=== PATIENT | male | born 1990 | race Caucasian/White ===

== ENCOUNTER 2022-07-14 12:19 | Inpatient (IN) | payer OTHER, SELFPAY ==
--- NOTE | 2022-07-14 | ECG_ITS ---
Test Reason : med clearance Blood Pressure : / mmHG Vent. Rate : 073 BPM Atrial Rate : 073 BPM P-R Int : 140 ms QRS Dur : 096 ms QT Int : 380 ms P-R-T Axes : 005 073 046 degrees QTc Int : 418 ms Normal sinus rhythm Incomplete right bundle branch block Borderline ECG No previous ECGs available Referred By: Mattie Jaquez Electronically Signed By:SAMEER SWEENEY
[2022-07-14 12:39] VITALS: BP 123/88; PULSE 107; RESP 18; TEMP 36.9; O2SAT 96; BMI 23.6
--- NOTE | 2022-07-14 13:12 | PC.NURSE ---
Smart sheet faxed [phone]
[2022-07-14 13:22] LABS: MANUAL DIFF FLAG NO
[2022-07-14 13:25] LABS: Basophils Absolute Auto 0.1 X10*3/uL (0.0-0.2); Basophils Percent Auto 0.5 % (0-2); Eosinophils Absolute Auto 0.1 X10*3/uL (0.0-0.4); Eosinophils Percent Auto 0.5 % (0-4); Hematocrit 42.8 % (42.0-52.0); Hemoglobin 15.4 g/dl (14.0-18.0); Imm Gran Abs Auto 0.03 X10*3/uL (0.00-0.03); Imm Gran Pct Auto 0.3 % (0.0-0.4); Lymphocytes Absolute Auto 1.9 X10*3/uL (1.2-4.9); Lymphocytes Percent Auto 19.3 % (20-40); Mean Corpuscular Hemoglobin 31.9 pg (27.0-33.0); Mean Corpuscular Volume 88.6 fL (80.0-98.0); Monocytes Absolute Auto 0.6 X10*3/uL (0.1-1.2); Monocytes Percent Auto 6.4 % (2-11); Neutrophils Absolute Auto 7.2 x10*3/uL (2.0-8.3); Platelet Count 371 X10*3/uL (160-400); Red Blood Count 4.83 X10*6/uL (4.60-5.80); White Blood Count 9.8 X10*3/uL (4.8-10.8)
[2022-07-14 13:39] LABS: Appearance Urine Clear; Color Urine Yellow; Glucose Urine UA Negative (Negative); Leukocyte Esterase Urine Negative (Negative); Nitrite Urine Negative (Negative); Specific Gravity - Urine >= 1.030 (1.005-1.025); Urine Blood Negative (Negative); Urine Ketones Trace mg/dL (Negative); Urine Protein Trace mg/dL (Neg-Trace)
[2022-07-14 13:43] LABS: COVID-19 Test Negative (Negative)
[2022-07-14 13:46] LABS: Alanine Aminotransferase 25 U/L (0-40); Albumin Level 4.8 g/dL (3.5-5.0); Alkaline Phosphatase 81 U/L (39-117); Anion Gap 15 (12-20); Aspartate Amino Transferase 20 U/L (5-37); Bilirubin Total 0.5 mg/dL (0.0-1.0); Blood Urea Nitrogen 16 mg/dL (9-16); Calcium 10.1 mg/dL (8.4-10.2); Carbon Dioxide 27 mmol/L (22-29); Chloride 101 mmol/L (96-108); Creatinine Clr Calc Pharmacy 110.6; Estimated Glomerular Filt Rate > 60; Ethanol < 10 mg/dL; Glucose Random 145 mg/dL (60-115); Potassium 3.9 mmol/L (3.3-5.1); Sodium 139 mmol/L (135-145); Total Protein 7.7 g/dL (6.5-8.0)
[2022-07-14 13:46] LABS: Amphetamine Screen Urine Not Detected (Not Detect); Barbiturates, Urine Not Detected (Not Detect); Benzodiazepines Screen Urine Not Detected (Not Detect); Cannabinoid Screen Urine POSITIVE (Not Detect); Cocaine Screen Urine Not Detected (Not Detect); Fentanyl, urine Not Detected (Not Detect); Opiate Screen Urine Not Detected (Not Detect); Phencyclidine Screen Urine Not Detected (Not Detect)
--- NOTE | 2022-07-14 14:28 | ED.PSYCH ---
HPI - Psych General Chief Complaint: Psychiatric Symptoms Stated Complaint: manic depression Time Seen by Provider: 07/14/22 13:16 Source: patient Mode of arrival: ambulatory Limitations: no limitations History of Present Illness HPI Narrative: Patient presents emergency department for evaluation of panic attacks and manic depression by his account. He states that he has not been on medication for his depression and approximately 8 years. However, over the past week or so he has been experiencing increased labile mood and panic attacks with pressured speech. He does endorse increased stressors at home. He denies any suicidal or homicidal ideations. Denies any hallucinations. He does state that over the past week he has had multiple days of binge drinking reporting that he is consuming alcohol in excess every other day, unclear exactly how much he is drinking. States he has never gone through withdrawal from alcohol. He does also endorse marijuana usage but denies any additional drug usage. Related Data Home Medications Medication Instructions Recorded Confirmed omeprazole 40 mg capsule,delayed 1 cap PO DAILY 07/14/22 07/14/22 release Allergies Allergy/AdvReac Type Severity Reaction Status Date / Time aripiprazole [From [facility]] AdvReac Unknown FELT HE Verified 07/14/22 17:15 WAS CRAWLING OUT OF HIS SKIN Review of Systems Review of Systems: Constitutional : No Fever, No Chills ENT/Mouth : No Ear Pain, No Nasal Congestion, No sore throat Eyes: No Eye Pain, No Swelling, No Redness Cardiovascular : No Chest Pain, No SOB Respiratory : No Cough, No Sputum, No Dyspnea Gastrointestinal : No Nausea, No Vomiting, No Diarrhea, No Hematochezia, No Melena Genitourinary : No Dysuria, No Urinary Frequency, No Hematuria Musculoskeletal : No Myalgias Skin : No Skin Lesions, No rash Neuro : No Weakness, No Numbness, No Paresthesias, No Dizziness, No Headache Psych : positive Anxiety, positive Depression, now SI/HI Heme/Lymph: No Lymphadenopathy Endocrine : No Polyuria, No Polydipsia Yes all other systems are reviewed and are negative [facility] Past Medical History Attestation statement: The following information was validated with the patient. Source: old records reviewed Social History Social History Alcohol intake: current Alcohol intake frequency: 3 or more drinks per day Patient Tobacco Use Status: Tobacco use Unknown Use of substances other than those prescribed or required for medical reasons: No Advance Directives: No Advance Directives Information Provided: Yes Physical Exam Vital Signs: Vital Signs: Last Vital Signs Temp 98.4 F 07/14/22 12:39 Pulse 107 H 07/14/22 12:39 Resp 16 07/14/22 16:00 BP 123/88 07/14/22 12:39 Pulse Ox 96 07/14/22 12:39 O2 Del Method 07/14/22 12:39 BMI result Body Mass Index 23.6 Appearance: Alert.?Oriented to person, place and time. No acute distress.?Normal affect. Eyes: Pupils equal, round and reactive to light.? ENT: Pharynx normal.?? Neck: Normal inspection.? Neck supple.?? CVS: Heart sounds normal. Normal heart rate and rhythm.? Pulses normal.?? Respiratory: No respiratory distress.? Lung sounds clear to auscultation bilaterally?? Abdomen: Soft and non-tender. Normoactive bowel sounds. .?? Skin: Skin warm and dry.? Normal skin color.? Extremities: No lower extremity edema.? ? Neuro: Moves all extremities spontaneously. Sensation intact bilaterally. CN II-XII intact. No focal neuro deficits. Ambulates with normal steady gait. Course Course Course Narrative: Patient is a 31-year-old male with a past medical history of manic depression presenting to emergency department for evaluation of increased labile mood and panic attacks. Denies suicidal or homicidal ideations, no hallucinations by patient's account. Does endorse binge drinking recently, denies any past history of alcohol withdrawal symptoms. Requesting assistance in getting his mood better adjusted. He is overall well appearing. No apparent distress. Vital signs are stable, initially mildly tachycardic at 107, during exam heart rate at 80. Will obtain basic labs for medical clearance, OWEN, ethanol level, and referred to [facility] for safe disposition. At this time he is calming cooperative. No physical complaints. Reevaluation(s) Reevaluation #1: Labs are overall unremarkable. COVID-19 testing was negative. Alcohol level undetectable. Drug of abuse screen positive for marijuana. At this time patient will be placed in physician observation. The reason for observation at this time as he will require additional time to be evaluated by behavioral health team for a safe disposition planning. He is in no apparent distress. Respirations are regular even and nonlabored. No physical complaints at this time. Time: 15:11 [facility] - Psych Medical Records Attestation: I reviewed the patient's medical records. Lab Data Attestation: I reviewed the patient's lab results. Result diagrams: 07/14/22 13:17 07/14/22 13:17 Labs: Lab Results 07/14/22 07/14/22 07/14/22 Range/Units 13:01 13:01 13:17 WBC 9.8 (4.8-10.8) X10*3/uL RBC 4.83 (4.60-5.80) X10*6/uL Hgb 15.4 (14.0-18.0) g/dl Hct 42.8 (42.0-52.0) % MCV 88.6 (80.0-98.0) fL MCH 31.9 (27.0-33.0) pg MCHC 36.0 (31.0-36.0) g/dl RDW 12.0 (11.0-16.0) % Plt Count 371 (160-400) X10*3/uL MPV 9.0 L (9.4-12.4) fL Immature Gran % (Auto) 0.3 (0.0-0.4) % Neut % (Auto) 73.0 (45-73) % Lymph % (Auto) 19.3 L (20-40) % [place] % (Auto) 6.4 (2-11) % Eos % (Auto) 0.5 (0-4) % Baso % (Auto) 0.5 (0-2) % Lymph # (Auto) 1.9 (1.2-4.9) X10*3/uL [place] # (Auto) 0.6 (0.1-1.2) X10*3/uL Eos # (Auto) 0.1 (0.0-0.4) X10*3/uL Baso # (Auto) 0.1 (0.0-0.2) X10*3/uL Abs Immat Gran (auto) 0.03 (0.00-0.03) X10*3/uL Absolute Neuts (auto) 7.2 (2.0-8.3) x10*3/uL Absolute Nucleated RBC 0.000 (0.0-0.012) X10*3/uL Nucleated RBC % (auto) 0.0 (0.0-0.2) /100WBC Sodium (135-145) mmol/L Potassium (3.3-5.1) mmol/L Chloride (96-108) mmol/L Carbon Dioxide (22-29) mmol/L Anion Gap (12-20) BUN (9-16) mg/dL Creatinine (0.5-1.4) mg/dL Estim Creat Clear Calc Estimated GFR Random Glucose (60-115) mg/dL Calcium (8.4-10.2) mg/dL Total Bilirubin (0.0-1.0) mg/dL AST (5-37) U/L ALT (0-40) U/L Alkaline Phosphatase (39-117) U/L Total Protein (6.5-8.0) g/dL Albumin (3.5-5.0) g/dL Urine Color Yellow Urine Appearance Clear Urine pH 7.0 (5.0-9.0) Ur Specific [place] >= 1.030 H (1.005-1.025) Urine Protein Trace (Neg-Trace) mg/dL Urine Glucose (UA) Negative (Negative) mg/dL Urine Ketones Trace (Negative) mg/dL Urine Blood Negative (Negative) Urine Nitrite Negative (Negative) Ur Leukocyte Esterase Negative (Negative) Urine Opiates Screen Not Detected (Not Detect) Urine Fentanyl Screen Not Detected (Not Detect) Ur Barbiturates Screen Not Detected (Not Detect) Ur Phencyclidine Scrn Not Detected (Not Detect) Ur Amphetamines Screen Not Detected (Not Detect) U Benzodiazepines Scrn Not Detected (Not Detect) Urine Cocaine Screen Not Detected (Not Detect) U Marijuana (THC) Screen POSITIVE H (Not Detect) Ethyl Alcohol mg/dL COVID-19 (FRAN) (Negative) COVID-19 Clin Com 07/14/22 07/14/22 Range/Units 13:17 13:17 WBC (4.8-10.8) X10*3/uL RBC (4.60-5.80) X10*6/uL Hgb (14.0-18.0) g/dl Hct (42.0-52.0) % MCV (80.0-98.0) fL MCH (27.0-33.0) pg MCHC (31.0-36.0) g/dl RDW (11.0-16.0) % Plt Count (160-400) X10*3/uL MPV (9.4-12.4) fL Immature Gran % (Auto) (0.0-0.4) % Neut % (Auto) (45-73) % Lymph % (Auto) (20-40) % [place] % (Auto) (2-11) % Eos % (Auto) (0-4) % Baso % (Auto) (0-2) % Lymph # (Auto) (1.2-4.9) X10*3/uL [place] # (Auto) (0.1-1.2) X10*3/uL Eos # (Auto) (0.0-0.4) X10*3/uL Baso # (Auto) (0.0-0.2) X10*3/uL Abs Immat Gran (auto) (0.00-0.03) X10*3/uL Absolute Neuts (auto) (2.0-8.3) x10*3/uL Absolute Nucleated RBC (0.0-0.012) X10*3/uL Nucleated RBC % (auto) (0.0-0.2) /100WBC Sodium 139 (135-145) mmol/L Potassium 3.9 (3.3-5.1) mmol/L Chloride 101 (96-108) mmol/L Carbon Dioxide 27 (22-29) mmol/L Anion Gap 15 (12-20) BUN 16 (9-16) mg/dL Creatinine 0.99 (0.5-1.4) mg/dL Estim Creat Clear Calc 110.6 Estimated GFR > 60 Random Glucose 145 H (60-115) mg/dL Calcium 10.1 (8.4-10.2) mg/dL Total Bilirubin 0.5 (0.0-1.0) mg/dL AST 20 (5-37) U/L ALT 25 (0-40) U/L Alkaline Phosphatase 81 (39-117) U/L Total Protein 7.7 (6.5-8.0) g/dL Albumin 4.8 (3.5-5.0) g/dL Urine Color Urine Appearance Urine pH (5.0-9.0) Ur Specific [place] (1.005-1.025) Urine Protein (Neg-Trace) mg/dL Urine Glucose (UA) (Negative) mg/dL Urine Ketones (Negative) mg/dL Urine Blood (Negative) Urine Nitrite (Negative) Ur Leukocyte Esterase (Negative) Urine Opiates Screen (Not Detect) Urine Fentanyl Screen (Not Detect) Ur Barbiturates Screen (Not Detect) Ur Phencyclidine Scrn (Not Detect) Ur Amphetamines Screen (Not Detect) U Benzodiazepines Scrn (Not Detect) Urine Cocaine Screen (Not Detect) U Marijuana (THC) Screen (Not Detect) Ethyl Alcohol < 10 mg/dL COVID-19 (FRAN) Negative (Negative) COVID-19 Clin Com See Note Discharge Plan Discharge Clinical Impression: Depression Patient Disposition: Still a Patient Prescriptions: No Action omeprazole 40 mg capsule,delayed release(DR/EC) 1 cap PO DAILY
--- NOTE | 2022-07-14 15:59 | PHA.MEDREC ---
Pharmacy Consult ? Medication Reconciliation Pharmacy has completed the medication reconciliation.
[2022-07-14 16:00] VITALS: RESP 16
[2022-07-14] MEDS: Nicotine 21 MG PATCH.TD24 TRANSDERMA (16:35)
--- NOTE | 2022-07-14 17:05 | PC.NURSE ---
Pt given fidget toy, able to contract for safety.
--- NOTE | 2022-07-14 17:14 | PC.NURSE ---
Contact made with P for Omeprazole order s/p pt request and medrec verified by ronaldo
[2022-07-14] MEDS: Omeprazole 40 MG CAPSULE.DR PO (17:29)
[2022-07-14] MEDS: Ibuprofen 600 MG TABLET PO (19:40)
[2022-07-14 22:55] VITALS: BP 136/93; PULSE 86; RESP 16; TEMP 36.7; O2SAT 99
[2022-07-15] MEDS: hydrOXYzine HCL 25 MG TABLET PO ×3 (01:12→21:10)
[2022-07-15] MEDS: traZODone HCL 50 MG TABLET PO ×2 (01:12→21:10)
--- NOTE | 2022-07-15 05:01 | PC.ADMIT ---
Pt is a 31 yo male admitted to the unit after referral from CARE Team through the ED. Arrived on unit at 2255. Legal status is CV. Pt denies any current medical issues. Pt denies substance use other than daily marijuana use. States that he not used cocaine for 3 years now. Pt also acknowledges current tobacco use but only 4-5 cigarettes per day. Pt stated he had two detoxes in 2011 and 2014. States that he had one [facility] stay here on M5 8 years ago. Pt states that the precipitant to this stay began by progressively (3 weeks now) binge drinking more daily and getting drunk and feels as though he should not be feeling this way as he has everything in my life to be happy about . He has been having uncontrollable crying episodes with mood lability and pressured speech. He feels that this may be the beginning of a manic episode and that his last episode was 8 years ago. He believes that his recent engagement (met [employer] from [place] 3 weeks ago?) and thinking of changing careers have triggered this. He talked to his sister and brother and expressed that he does not feel like himself, at which point they brought him to [facility]. Pt denies current SI/HI or AVH. States that he goes from feeling depressed, then energetic, then drained. He states that he recalls this feeling from prior hospitalization 8 years ago. States that he just wants to get on medication that can help him as well as get a therapist upon discharge so that he can be the best version of myself . Pt is one of 7 children and states that he has strong family support and has a strong bird. Pt presents in hospital johnjuan r, good eye contact, exhibits humor and is future oriented. Provider legal secretary receptionist Alis notified and orders obtained. Pt placed on 15 min safety checks. Reports feeling safe on unit.
[2022-07-15 06:00] VITALS: BP 138/95; PULSE 86; RESP 18; TEMP 36.6; O2SAT 100
[2022-07-15] MEDS: Omeprazole 40 MG CAPSULE.DR PO (09:07)
[2022-07-15 09:46] LABS: Estimated Average Glucose 100 mg/dL; Hemoglobin A1c % 5.1 %
[2022-07-15 09:56] LABS: Cholesterol 167 mg/dL; HDL Cholesterol 58 mg/dL; LDL Cholesterol Calculated 94 mg/dl; Magnesium 2.1 mg/dL (1.6-2.6); Triglycerides 77 mg/dL
[2022-07-15] MEDS: Nicotine 7 MG PATCH.TD24 TRANSDERMA (10:11)
[2022-07-15 10:20] LABS: Free T4 (Free Thyroxine) 0.95 ng/dL (0.71-1.85); Thyroid Stimulating Hormone 1.13 uIU/mL (0.32-4.0)
[2022-07-15 10:37] LABS: Folate 11.2 ng/mL (> or = 4.0); Vitamin B12 384 pg/mL (200-900)
[2022-07-15] MEDS: Nicotine Polacrilex 2 MG GUM BUCCAL ×3 (11:42→21:10)
[2022-07-15] MEDS: QUEtiapine Fumarate 25 MG TABLET PO (12:58)
--- NOTE | 2022-07-15 12:59 | MHC.CLN ---
NUTRITION CONSULT FOR RECENT WEIGHT LOSS. REPORTS 10# WEIGHT LOSS X 1 WEEK. BINGE DRINKING X 3 WEEKS PRIOR TO ADMISSION WITH LIKELY INADEQUATE NUTRITIONAL INTAKE. REPORTS THAT IS EATING VERY WELL HERE. DOES NOT WANT NUTRITIONAL SUPPLEMENT. NO ADDITIONAL NUTRITION INTERVENTIONS AT THIS TIME.
--- NOTE | 2022-07-15 14:45 | HO.PSYADMNOT ---
HPI Date of Service: 07/15/22 Chief Complaint: panic attacks, bipolar HPI Narrative: pt reports he had a manic episode 8 yrs ago and was hospitalized on M5. he states that in recent weeks he has been feeling not himself, and he has begun to experience symptoms which remind him of that time 8 years ago and he wants to get things under control before things get dangerous. describes labile mood, depressed mood intermittently, pressured speech, crying jags, binge drinking to manage symptoms, visions that are intensifying, focus on wanting to tell others about various numbers and their significance to his life (which he follows up with, and that's not normal ). attempted suicide 8 yrs ago, last time he was manic. discuss medication options, pt not keen on tegretol, had bad experiences on VPA and lithium. asks to restart seroquel, which he had when he was on M5 8 years ago. will start 25 PRN agitation and 100 QHS. Past Psychiatric History: pt believes he has ADHD from childhood but he was never diagnosed or treated. he smokes cannabis daily, which he believes helps with his ADHD. in 5th grade he was holding/playing with a knife near his heart and perhaps having thoughts about connecting the two. he told sis, who told mom, and he saw therapist in school for a bit. at 21-21 yo he was using a lot of drugs, such as cocaine, nori; got psychotic and was hospitalized at [facility]. at 23 yo had what he describes as a manic episode and was hospitalized on M5. was on seroquel and VPA. reports feeling numbed out on lithium and like a zombie on VPA. made a lot of chloroform and tried to kill himself with it by inhaling as much as he could. no reported SIBI. no mental health care in the past 8 years. stopped meds not long after leaving the hospital. Medical Evaluation Reviewed: Yes [facility] Narrative: acute pancreatitis reported after COVID booster GERD s/p choly Family History: sister - likely bipolar mother - likely the same. nervous breakdown in her 20's. second sister - manic-ness Social History: lives in [place], rents, has one roommate. 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 4.5 yrs of college, no degree. engaged these past 3 weeks, never . cherie lives in [place] with her 14 yo child. Substance History: cannabis - daily for even mood alcohol - generally minimal, sparse. escalates when manic. binge drinking QOD the past week. wasn't drinking at all a month ago. tobacco - vape/smokes when drinking Trauma History: none reported Diagnostics Vital Signs (24Hr): Vital Signs - 24 hr 07/14/22 16:00 07/14/22 22:55 07/14/22 22:55 Temperature 98.1 F 98.1 F Pulse Rate 86 86 Respiratory Rate 16 16 16 Blood Pressure 136/93 H 136/93 H Pulse Oximetry 99 99 Oxygen Delivery Method Room Air Room Air 07/15/22 06:00 Temperature 97.9 F Pulse Rate 86 Respiratory Rate 18 Blood Pressure 138/95 H Pulse Oximetry 100 Oxygen Delivery Method Room Air BMI result Body Mass Index 23.6 Labs Results: 07/14/22 13:17 07/14/22 13:17 Labs: Laboratory Results - last 48 hr 07/14/22 07/14/22 07/14/22 13:01 13:01 13:17 WBC 9.8 RBC 4.83 Hgb 15.4 Hct 42.8 MCV 88.6 MCH 31.9 MCHC 36.0 RDW 12.0 Plt Count 371 MPV 9.0 L Immature Gran % (Auto) 0.3 Neut % (Auto) 73.0 Lymph % (Auto) 19.3 L [place] % (Auto) 6.4 Eos % (Auto) 0.5 Baso % (Auto) 0.5 Lymph # (Auto) 1.9 [place] # (Auto) 0.6 Eos # (Auto) 0.1 Baso # (Auto) 0.1 Abs Immat Gran (auto) 0.03 Absolute Neuts (auto) 7.2 Absolute Nucleated RBC 0.000 Nucleated RBC % (auto) 0.0 Sodium Potassium Chloride Carbon Dioxide Anion Gap BUN Creatinine Estim Creat Clear Calc Estimated GFR Random Glucose Estimat Average Glucose Hemoglobin A1c % Calcium Magnesium Total Bilirubin AST ALT Alkaline Phosphatase Total Protein Albumin Triglycerides Cholesterol LDL Cholesterol, Calc HDL Cholesterol Vitamin B12 Folate TSH Free T4 Urine Color Yellow Urine Appearance Clear Urine pH 7.0 Ur Specific [place] >= 1.030 H Urine Protein Trace Urine Glucose (UA) Negative Urine Ketones Trace Urine Blood Negative Urine Nitrite Negative Ur Leukocyte Esterase Negative Urine Opiates Screen Not Detected Urine Fentanyl Screen Not Detected Ur Barbiturates Screen Not Detected Ur Phencyclidine Scrn Not Detected Ur Amphetamines Screen Not Detected U Benzodiazepines Scrn Not Detected Urine Cocaine Screen Not Detected U Marijuana (THC) Screen POSITIVE H Ethyl Alcohol COVID-19 (FRAN) COVID-19 Clin Com 07/14/22 07/14/22 07/15/22 13:17 13:17 08:57 WBC RBC Hgb Hct MCV MCH MCHC RDW Plt Count MPV Immature Gran % (Auto) Neut % (Auto) Lymph % (Auto) [place] % (Auto) Eos % (Auto) Baso % (Auto) Lymph # (Auto) [place] # (Auto) Eos # (Auto) Baso # (Auto) Abs Immat Gran (auto) Absolute Neuts (auto) Absolute Nucleated RBC Nucleated RBC % (auto) Sodium 139 Potassium 3.9 Chloride 101 Carbon Dioxide 27 Anion Gap 15 BUN 16 Creatinine 0.99 Estim Creat Clear Calc 110.6 Estimated GFR > 60 Random Glucose 145 H Estimat Average Glucose 100 Hemoglobin A1c % 5.1 Calcium 10.1 Magnesium Total Bilirubin 0.5 AST 20 ALT 25 Alkaline Phosphatase 81 Total Protein 7.7 Albumin 4.8 Triglycerides Cholesterol LDL Cholesterol, Calc HDL Cholesterol Vitamin B12 Folate TSH Free T4 Urine Color Urine Appearance Urine pH Ur Specific [place] Urine Protein Urine Glucose (UA) Urine Ketones Urine Blood Urine Nitrite Ur Leukocyte Esterase Urine Opiates Screen Urine Fentanyl Screen Ur Barbiturates Screen Ur Phencyclidine Scrn Ur Amphetamines Screen U Benzodiazepines Scrn Urine Cocaine Screen U Marijuana (THC) Screen Ethyl Alcohol < 10 COVID-19 (FRAN) Negative COVID-19 Clin Com See Note 07/15/22 07/15/22 08:57 08:57 WBC RBC Hgb Hct MCV MCH MCHC RDW Plt Count MPV Immature Gran % (Auto) Neut % (Auto) Lymph % (Auto) [place] % (Auto) Eos % (Auto) Baso % (Auto) Lymph # (Auto) [place] # (Auto) Eos # (Auto) Baso # (Auto) Abs Immat Gran (auto) Absolute Neuts (auto) Absolute Nucleated RBC Nucleated RBC % (auto) Sodium Potassium Chloride Carbon Dioxide Anion Gap BUN Creatinine Estim Creat Clear Calc Estimated GFR Random Glucose Estimat Average Glucose Hemoglobin A1c % Calcium Magnesium 2.1 Total Bilirubin AST ALT Alkaline Phosphatase Total Protein Albumin Triglycerides 77 Cholesterol 167 LDL Cholesterol, Calc 94 HDL Cholesterol 58 Vitamin B12 384 Folate 11.2 TSH 1.13 Free T4 0.95 Urine Color Urine Appearance Urine pH Ur Specific [place] Urine Protein Urine Glucose (UA) Urine Ketones Urine Blood Urine Nitrite Ur Leukocyte Esterase Urine Opiates Screen Urine Fentanyl Screen Ur Barbiturates Screen Ur Phencyclidine Scrn Ur Amphetamines Screen U Benzodiazepines Scrn Urine Cocaine Screen U Marijuana (THC) Screen Ethyl Alcohol COVID-19 (FRAN) COVID-19 Clin Com Meds/Allergies Meds Home Medications Medication Instructions Recorded Confirmed Type omeprazole 40 mg capsule,delayed 1 cap PO DAILY 07/14/22 07/14/22 History release Allergies Allergies Allergy/AdvReac Type Severity Reaction Status Date / Time [facility]raz[facility] AdvReac Unknown FELT HE Verified 07/14/22 17:15 WAS CRAWLING OUT OF HIS SKIN Mental Status Exam Mental Status Exam Narrative: appropriately dressed and groomed. no PMA/PMR. cooperative. speech incr rate and amount. nml latency, prosody. thoughts linear and logical. affect full range, normo-intense, non-labile. mood I'm OK. it's just my body. denies SI/SIBI/HI/AVH. does state that yesterday in the pod the fllor appeared to become waving, as if he were on mushrooms. Assessment & Plan Assessment & Plan (1) Bipolar I disorder, most recent episode (or current) manic with mixed features: Status: Acute Code(s): F31.10 - Bipolar disorder, current episode manic without psychotic features, unspecified Plan start seroquel 25 mg Q4H PRN agitation and 100 mg QHS for mixed pepper. increase or decrease dosing over w/e as indicated. Patient educated on: diagnosis, medication risk/benefits and substance abuse Reason for continued inpatient stay Substantial Risk for: inability to function and rapid decompensation
[2022-07-15 21:05] VITALS: BP 121/89; PULSE 83; RESP 18; TEMP 36.4; O2SAT 96
[2022-07-15] MEDS: QUEtiapine Fumarate 100 MG TABLET PO (21:10)
[2022-07-16 06:00] VITALS: BP 122/90; PULSE 90; RESP 18; TEMP 36.6; O2SAT 99
[2022-07-16] MEDS: Nicotine 7 MG PATCH.TD24 TRANSDERMA (08:20)
[2022-07-16] MEDS: Omeprazole 40 MG CAPSULE.DR PO (08:21)
[2022-07-16] MEDS: Nicotine Polacrilex 2 MG GUM BUCCAL ×5 (09:12→21:16)
[2022-07-16] MEDS: QUEtiapine Fumarate 25 MG TABLET PO ×2 (11:08→14:59)
--- NOTE | 2022-07-16 12:03 | P.PNPSI_ITS ---
Subjective Subjective Date of Service: 07/16/22 Reason For Visit: panic attacks, bipolar Subjective Notes: Conditional Voluntary Interim History: The nursing staff reported the patient has been compliant and pleasant, he was seen yesterday crying his room. On interview the patient reported that he was were sedated with the 1st dose of Seroquel at night and he has complained of nightmares. We discussed options and he agreed to try prazosin at night to target nightmares. No active suicidal or homicidal thoughts Mental Status Exam Mental Status Exam Patient Appearance: Well Grooomed Patient Orientation: Person Level of Consciousness: Awake Patient Behavior: Cooperative Mood Description: Calm Affect Description: Constricted Patient Cognition Impaired: No Ability to Follow Directions: Good Speech Pattern: Clear Hallucinations: None Delusions: Not Present Thought Content: positive for Intact Depressive Symptoms: Crying Spells Judgement: Fair Diagnostics Vital Signs (24Hr): Vital Signs - 24 hr 07/15/22 21:05 07/16/22 06:00 Temperature 97.6 F 97.9 F Pulse Rate 83 90 Respiratory Rate 18 18 Blood Pressure 121/89 122/90 H Pulse Oximetry 96 99 Oxygen Delivery Method Room Air Room Air BMI result Body Mass Index 23.6 Labs Results: 07/14/22 13:17 07/14/22 13:17 Labs: Laboratory Results - last 48 hr 07/14/22 07/14/22 07/14/22 13:01 13:01 13:17 WBC 9.8 RBC 4.83 Hgb 15.4 Hct 42.8 MCV 88.6 MCH 31.9 MCHC 36.0 RDW 12.0 Plt Count 371 MPV 9.0 L Immature Gran % (Auto) 0.3 Neut % (Auto) 73.0 Lymph % (Auto) 19.3 L [place] % (Auto) 6.4 Eos % (Auto) 0.5 Baso % (Auto) 0.5 Lymph # (Auto) 1.9 [place] # (Auto) 0.6 Eos # (Auto) 0.1 Baso # (Auto) 0.1 Abs Immat Gran (auto) 0.03 Absolute Neuts (auto) 7.2 Absolute Nucleated RBC 0.000 Nucleated RBC % (auto) 0.0 Sodium Potassium Chloride Carbon Dioxide Anion Gap BUN Creatinine Estim Creat Clear Calc Estimated GFR Random Glucose Estimat Average Glucose Hemoglobin A1c % Calcium Magnesium Total Bilirubin AST ALT Alkaline Phosphatase Total Protein Albumin Triglycerides Cholesterol LDL Cholesterol, Calc HDL Cholesterol Vitamin B12 Folate TSH Free T4 Urine Color Yellow Urine Appearance Clear Urine pH 7.0 Ur Specific [place] >= 1.030 H Urine Protein Trace Urine Glucose (UA) Negative Urine Ketones Trace Urine Blood Negative Urine Nitrite Negative Ur Leukocyte Esterase Negative Urine Opiates Screen Not Detected Urine Fentanyl Screen Not Detected Ur Barbiturates Screen Not Detected Ur Phencyclidine Scrn Not Detected Ur Amphetamines Screen Not Detected U Benzodiazepines Scrn Not Detected Urine Cocaine Screen Not Detected U Marijuana (THC) Screen POSITIVE H Ethyl Alcohol COVID-19 (FRAN) COVID-19 Food52 07/14/22 07/14/22 07/15/22 13:17 13:17 08:57 WBC RBC Hgb Hct MCV MCH MCHC RDW Plt Count MPV Immature Gran % (Auto) Neut % (Auto) Lymph % (Auto) [place] % (Auto) Eos % (Auto) Baso % (Auto) Lymph # (Auto) [place] # (Auto) Eos # (Auto) Baso # (Auto) Abs Immat Gran (auto) Absolute Neuts (auto) Absolute Nucleated RBC Nucleated RBC % (auto) Sodium 139 Potassium 3.9 Chloride 101 Carbon Dioxide 27 Anion Gap 15 BUN 16 Creatinine 0.99 Estim Creat Clear Calc 110.6 Estimated GFR > 60 Random Glucose 145 H Estimat Average Glucose 100 Hemoglobin A1c % 5.1 Calcium 10.1 Magnesium Total Bilirubin 0.5 AST 20 ALT 25 Alkaline Phosphatase 81 Total Protein 7.7 Albumin 4.8 Triglycerides Cholesterol LDL Cholesterol, Calc HDL Cholesterol Vitamin B12 Folate TSH Free T4 Urine Color Urine Appearance Urine pH Ur Specific [place] Urine Protein Urine Glucose (UA) Urine Ketones Urine Blood Urine Nitrite Ur Leukocyte Esterase Urine Opiates Screen Urine Fentanyl Screen Ur Barbiturates Screen Ur Phencyclidine Scrn Ur Amphetamines Screen U Benzodiazepines Scrn Urine Cocaine Screen U Marijuana (THC) Screen Ethyl Alcohol < 10 COVID-19 (FRAN) Negative COVID-19 [facility] See Note 07/15/22 07/15/22 08:57 08:57 WBC RBC Hgb Hct MCV MCH MCHC RDW Plt Count MPV Immature Gran % (Auto) Neut % (Auto) Lymph % (Auto) [place] % (Auto) Eos % (Auto) Baso % (Auto) Lymph # (Auto) [place] # (Auto) Eos # (Auto) Baso # (Auto) Abs Immat Gran (auto) Absolute Neuts (auto) Absolute Nucleated RBC Nucleated RBC % (auto) Sodium Potassium Chloride Carbon Dioxide Anion Gap BUN Creatinine Estim Creat Clear Calc Estimated GFR Random Glucose Estimat Average Glucose Hemoglobin A1c % Calcium Magnesium 2.1 Total Bilirubin AST ALT Alkaline Phosphatase Total Protein Albumin Triglycerides 77 Cholesterol 167 LDL Cholesterol, Calc 94 HDL Cholesterol 58 Vitamin B12 384 Folate 11.2 TSH 1.13 Free T4 0.95 Urine Color Urine Appearance Urine pH Ur Specific [place] Urine Protein Urine Glucose (UA) Urine Ketones Urine Blood Urine Nitrite Ur Leukocyte Esterase Urine Opiates Screen Urine Fentanyl Screen Ur Barbiturates Screen Ur Phencyclidine Scrn Ur Amphetamines Screen U Benzodiazepines Scrn Urine Cocaine Screen U Marijuana (THC) Screen Ethyl Alcohol COVID-19 (FRAN) COVID-19 Clin Com Medications Medications Current Medications Acetaminophen (Acetaminophen 325 Mg Tablet) 650 mg PO Q6H PRN PRN Reason: Headache/Pain Mild Scale (1-3) Al Hydroxide/Mg Hydroxide (Magnesium Hydrox/Alum Hydrox 30 Ml Oral.Susp) 30 ml PO Q6H PRN PRN Reason: Heartburn/Nausea Hydroxyzine HCl (Hydroxyzine Hcl 25 Mg Tablet) 25 mg PO Q6H PRN PRN Reason: Anxiety Last Admin: 07/15/22 21:10 Dose: 25 mg Magnesium Hydroxide (Milk Of Magnesia 30 Ml Oral.Susp) 30 ml PO DAILY PRN PRN Reason: Constipation Nicotine (Nicotine 7 Mg Patch.Td24) 7 mg TRANSDERMA DAILY [facility] Last Admin: 07/16/22 08:20 Dose: 7 mg Nicotine Polacrilex (Nicotine Polacrilex 2 Mg Gum) 2 mg BUCCAL Q2H PRN PRN Reason: Nicotine Cravings Last Admin: 07/16/22 11:07 Dose: 2 mg Omeprazole (Omeprazole 40 Mg Capsule.Dr) 40 mg PO DAILY@0630 [facility] Last Admin: 07/16/22 08:21 Dose: 40 mg Quetiapine Fumarate (Quetiapine Fumarate 25 Mg Tablet) 25 mg PO Q4H PRN PRN Reason: agitation Last Admin: 07/16/22 11:08 Dose: 25 mg Quetiapine Fumarate (Quetiapine Fumarate 100 Mg Tablet) 100 mg PO BEDTIME [facility] Last Admin: 07/15/22 21:10 Dose: 100 mg Quetiapine Fumarate (Quetiapine Fumarate 100 Mg Tablet) 100 mg PO BEDTIME PRN PRN Reason: insomnia Allergies Allergies Allergy/AdvReac Type Severity Reaction Status Date / Time aripiprazole [From [facility]] AdvReac Unknown FELT HE Verified 07/14/22 17:15 WAS CRAWLING OUT OF HIS SKIN Assessment & Plan Assessment & Plan (1) Bipolar I disorder, most recent episode (or current) manic with mixed features: Status: Acute Code(s): F31.10 - Bipolar disorder, current episode manic without psychotic features, unspecified Plan start seroquel 25 mg Q4H PRN agitation and 100 mg QHS for mixed pepper. increase or decrease dosing over w/e as indicated. Add on 07/16 Prazosin for nightmares. I spent ___20___ minutes with the patient and/or on the patient floor today, greater than?50% of which was spent counseling/coordinating care. Reason for contiued inpatient stay Substantial Risk for: inability to function, rapid decompensation and med/psych decompensation
[2022-07-16] MEDS: Milk of Magnesia 30 ML ORAL.SUSP PO (12:09)
[2022-07-16] MEDS: Prazosin HCL 1 MG CAPSULE PO (21:13)
[2022-07-16] MEDS: QUEtiapine Fumarate 100 MG TABLET PO (21:18)
[2022-07-16 21:30] VITALS: BP 134/83; PULSE 80; RESP 18; TEMP 36.6; O2SAT 97
[2022-07-16] MEDS: traZODone HCL 50 MG TABLET PO (21:34)
[2022-07-17] MEDS: traZODone HCL 50 MG TABLET PO ×3 (01:02→23:52)
[2022-07-17 09:20] VITALS: BP 128/63; PULSE 95; RESP 16; TEMP 36.6; O2SAT 97
[2022-07-17] MEDS: Omeprazole 40 MG CAPSULE.DR PO (09:23)
[2022-07-17] MEDS: Nicotine 7 MG PATCH.TD24 TRANSDERMA (09:23)
[2022-07-17] MEDS: Nicotine Polacrilex 2 MG GUM BUCCAL ×5 (10:01→20:44)
[2022-07-17] MEDS: QUEtiapine Fumarate 25 MG TABLET PO ×2 (11:36→18:30)
--- NOTE | 2022-07-17 11:57 | P.PNPSI_ITS ---
Subjective Subjective Date of Service: 07/17/22 Reason For Visit: panic attacks, bipolar Subjective Notes: Conditional Voluntary Interim History: The nursing staff reported the patient has been compliant with treatment. Last night he reported nightmares even though that we started prazosin last night. He woke up at 01:00 o'clock in the morning. On interview the patient reports some auditory hallucinations and paranoia and he reported no improvement with prazosin 1 mg p.o. q.h.s. to target nightmares. We discussed options and he agreed to increase up to 2 mg at night Mental Status Exam Mental Status Exam Patient Appearance: Well Grooomed Patient Orientation: Person and Situation Level of Consciousness: Awake Patient Behavior: Cooperative Mood Description: Calm Affect Description: Constricted Patient Cognition Impaired: No Ability to Follow Directions: Good Speech Pattern: Clear Hallucinations: None Delusions: Paranoid Ideation Thought Process: Distracted Thought Content: positive for [place] Judgement: Fair Diagnostics Vital Signs (24Hr): Vital Signs - 24 hr 07/16/22 21:30 07/17/22 09:20 Temperature 97.9 F 98 F Pulse Rate 80 95 Respiratory Rate 18 16 Blood Pressure 134/83 128/63 Pulse Oximetry 97 97 Oxygen Delivery Method Room Air Room Air BMI result Body Mass Index 23.6 Labs Results: 07/14/22 13:17 07/14/22 13:17 Medications Medications Current Medications Acetaminophen (Acetaminophen 325 Mg Tablet) 650 mg PO Q6H PRN PRN Reason: Headache/Pain Mild Scale (1-3) Al Hydroxide/Mg Hydroxide (Magnesium Hydrox/Alum Hydrox 30 Ml Oral.Susp) 30 ml PO Q6H PRN PRN Reason: Heartburn/Nausea Hydroxyzine HCl (Hydroxyzine Hcl 25 Mg Tablet) 25 mg PO Q6H PRN PRN Reason: Anxiety Last Admin: 07/15/22 21:10 Dose: 25 mg Magnesium Hydroxide (Milk Of Magnesia 30 Ml Oral.Susp) 30 ml PO DAILY PRN PRN Reason: Constipation Last Admin: 07/16/22 12:09 Dose: 30 ml Nicotine (Nicotine 7 Mg Patch.Td24) 7 mg TRANSDERMA DAILY [facility] Last Admin: 07/17/22 09:23 Dose: 7 mg Nicotine Polacrilex (Nicotine Polacrilex 2 Mg Gum) 2 mg BUCCAL Q2H PRN PRN Reason: Nicotine Cravings Last Admin: 07/17/22 10:01 Dose: 2 mg Omeprazole (Omeprazole 40 Mg Capsule.) 40 mg PO DAILY@0630 [facility] Last Admin: 07/17/22 09:23 Dose: 40 mg Prazosin HCl (Prazosin Hcl 1 Mg Capsule) 1 mg PO BEDTIME [facility]; Protocol Last Admin: 07/16/22 21:13 Dose: 1 mg Quetiapine Fumarate (Quetiapine Fumarate 25 Mg Tablet) 25 mg PO Q4H PRN PRN Reason: agitation Last Admin: 07/17/22 11:36 Dose: 25 mg Quetiapine Fumarate (Quetiapine Fumarate 100 Mg Tablet) 100 mg PO BEDTIME [facility] Last Admin: 07/16/22 21:18 Dose: 100 mg Quetiapine Fumarate (Quetiapine Fumarate 100 Mg Tablet) 100 mg PO BEDTIME PRN PRN Reason: insomnia Trazodone HCl (Trazodone Hcl 50 Mg Tablet) 50 mg PO BEDTIME PRN PRN Reason: Insomnia Last Admin: 07/17/22 01:02 Dose: 50 mg Allergies Allergies Allergy/AdvReac Type Severity Reaction Status Date / Time aripiprazole [From [facility]] AdvReac Unknown FELT HE Verified 07/14/22 17:15 WAS CRAWLING OUT OF HIS SKIN Assessment & Plan Assessment & Plan (1) Bipolar I disorder, most recent episode (or current) manic with mixed features: Status: Acute Code(s): F31.10 - Bipolar disorder, current episode manic without psychotic features, unspecified Plan start seroquel 25 mg Q4H PRN agitation and 100 mg QHS for mixed pepper. increase or decrease dosing over w/e as indicated. Increase on 07/17 Prazosin for nightmares up to 2 mg po qhs. I spent minutes with the patient and/or on the patient floor today, greater than?50% of which was spent counseling/coordinating care. Reason for contiued inpatient stay Substantial Risk for: inability to function, rapid decompensation and med/psych decompensation
[2022-07-17] MEDS: hydrOXYzine HCL 25 MG TABLET PO (16:17)
[2022-07-17 20:45] VITALS: BP 131/81; PULSE 96; RESP 18; TEMP 36.4; O2SAT 97
[2022-07-17] MEDS: QUEtiapine Fumarate 100 MG TABLET PO (21:08)
[2022-07-17] MEDS: Prazosin HCL 1 MG CAPSULE 2 MG PO (21:08)
[2022-07-18] MEDS: Nicotine Polacrilex 2 MG GUM BUCCAL ×4 (06:52→19:34)
[2022-07-18] MEDS: Omeprazole 40 MG CAPSULE.DR PO (06:52)
[2022-07-18 08:37] VITALS: BP 158/75; PULSE 96; RESP 17; TEMP 36.7; O2SAT 100
[2022-07-18] MEDS: Nicotine 7 MG PATCH.TD24 TRANSDERMA (08:57)
[2022-07-18] MEDS: QUEtiapine Fumarate 25 MG TABLET PO ×2 (08:59→12:47)
--- NOTE | 2022-07-18 14:23 | P.PNPSI_ITS ---
Subjective Subjective Date of Service: 07/18/22 Reason For Visit: panic attacks, bipolar Interim History: calm, cooperative. feeling well over the weekend. using both trazodone and seroquel at HS for sleep. also c/o nightmares, which only started once he came into the hospital. agreeable to DC trazodone and increase seroquel at HS for sleep, both to address bipolar disorder Sx and to avoid vivid dreams caused by trazodone. planning to discharge tomorrow. per staff, anxious and depressed. some conflict with his sister spreading word of his mental health challenges. visible, pleasant, safe. in a good space. slept well after trazodone. Mental Status Exam Mental Status Exam Narrative: appropriately dressed and groomed. no PMA/PMR. cooperative. speech nml rate and amount, latency, prosody. thoughts linear and logical. affect full range, normo-intense, non-labile. no SI/SIBI/HI/AVH expressed. Diagnostics Vital Signs (24Hr): Vital Signs - 24 hr 07/17/22 20:45 07/18/22 08:37 Temperature 97.5 F 98.1 F Pulse Rate 96 96 Respiratory Rate 18 17 Blood Pressure 131/81 158/75 H Pulse Oximetry 97 100 Oxygen Delivery Method Room Air Room Air BMI result Body Mass Index 23.6 Labs Results: 07/14/22 13:17 07/14/22 13:17 Medications Medications Current Medications Acetaminophen (Acetaminophen 325 Mg Tablet) 650 mg PO Q6H PRN PRN Reason: Headache/Pain Mild Scale (1-3) Al Hydroxide/Mg Hydroxide (Magnesium Hydrox/Alum Hydrox 30 Ml Oral.Susp) 30 ml PO Q6H PRN PRN Reason: Heartburn/Nausea Hydroxyzine HCl (Hydroxyzine Hcl 25 Mg Tablet) 25 mg PO Q6H PRN PRN Reason: Anxiety Last Admin: 07/17/22 16:17 Dose: 25 mg Magnesium Hydroxide (Milk Of Magnesia 30 Ml Oral.Susp) 30 ml PO DAILY PRN PRN Reason: Constipation Last Admin: 07/16/22 12:09 Dose: 30 ml Nicotine (Nicotine 7 Mg Patch.Td24) 7 mg TRANSDERMA DAILY [facility] Last Admin: 07/18/22 08:57 Dose: 7 mg Nicotine Polacrilex (Nicotine Polacrilex 2 Mg Gum) 2 mg BUCCAL Q2H PRN PRN Reason: Nicotine Cravings Last Admin: 07/18/22 13:41 Dose: 2 mg Omeprazole (Omeprazole 40 Mg Capsule.Dr) 40 mg PO DAILY@0630 [facility] Last Admin: 07/18/22 06:52 Dose: 40 mg Prazosin HCl (Prazosin Hcl 1 Mg Capsule) 2 mg PO BEDTIME [facility]; Protocol Last Admin: 07/17/22 21:08 Dose: 2 mg Quetiapine Fumarate (Quetiapine Fumarate 25 Mg Tablet) 25 mg PO Q4H PRN PRN Reason: agitation Last Admin: 07/18/22 12:47 Dose: 25 mg Quetiapine Fumarate (Quetiapine Fumarate 50 Mg Tablet) 150 mg PO BEDTIME [facility] Quetiapine Fumarate (Quetiapine Fumarate 50 Mg Tablet) 50 mg PO BEDTIME PRN PRN Reason: insomnia Allergies Allergies Allergy/AdvReac Type Severity Reaction Status Date / Time [facility] AdvReac Unknown FELT HE Verified 07/14/22 17:15 WAS CRAWLING OUT OF HIS SKIN Assessment & Plan Assessment & Plan (1) Bipolar I disorder, most recent episode (or current) manic with mixed features: Status: Acute Code(s): F31.10 - Bipolar disorder, current episode manic without psychotic features, unspecified Plan started seroquel 25 mg Q4H PRN agitation and 100 mg QHS for mixed pepper. started Prazosin for nightmares, titrated up to 2 mg po qhs as of 07/17. trazodone DCed 07/18 due to vivid dreams/nightmares, seroquel at HS increased to 150 with 50 repeat PRN. planning for discharge 07/19. I spent ___25___ minutes with the patient and/or on the patient floor today, greater than?50% of which was spent counseling/coordinating care. Reason for contiued inpatient stay Substantial Risk for: stable for discharge
[2022-07-18 21:00] VITALS: BP 146/98; PULSE 95; RESP 16; TEMP 36.7; O2SAT 96
[2022-07-18] MEDS: QUEtiapine Fumarate 50 MG TABLET 150 MG PO (21:03)
[2022-07-18] MEDS: Prazosin HCL 1 MG CAPSULE 2 MG PO (21:03)
[2022-07-18] MEDS: QUEtiapine Fumarate 50 MG TABLET PO (22:10)
[2022-07-19 06:00] VITALS: BP 147/88; PULSE 99; RESP 18; TEMP 36.6; O2SAT 100
[2022-07-19] MEDS: Omeprazole 40 MG CAPSULE.DR PO (08:15)
[2022-07-19] MEDS: Nicotine Polacrilex 2 MG GUM BUCCAL (08:19)
[2022-07-19] MEDS: QUEtiapine Fumarate 25 MG TABLET PO (08:19)
--- NOTE | 2022-07-19 10:06 | P.DS_ITS ---
DS: Providers Provider Date of Service: 07/19/22 Date of admission: 07/14/22 22:40 Primary care physician: Nonstaff Physician DS: Diagnosis Discharge Diagnosis (1) Bipolar I disorder, most recent episode (or current) manic with mixed features: Status: Acute DS: Medications Discharge Medications Home Medications: Home Medications Medication Instructions Recorded Confirmed omeprazole 40 mg capsule,delayed 1 cap PO DAILY 07/14/22 07/14/22 release Previous Rx's Medication Instructions Recorded prazosin 1 mg capsule 2 mg PO BEDTIME 30 days #60 caps 07/19/22 quetiapine 25 mg tablet 25 mg PO BID PRN agitation 30 days 07/19/22 #60 tabs quetiapine 50 mg tablet 200 mg PO BEDTIME 30 days #120 tabs 07/19/22 Mental Status Exam Mental Status Exam Narrative: appropriately dressed and groomed. no PMA/PMR. cooperative. speech nml rate and amount, latency, prosody. thoughts linear and logical. affect full range, normo-intense, non-labile. mood very stable and balanced. no SI/SIBI/HI/AVH. Data Data Completed and Pending Completed studies during hospitalization [Text1]: 07/14/22 07/14/22 07/14/22 13:01 13:01 13:17 WBC 9.8 RBC 4.83 Hgb 15.4 Hct 42.8 MCV 88.6 MCH 31.9 MCHC 36.0 RDW 12.0 Plt Count 371 MPV 9.0 L Immature Gran % (Auto) 0.3 Neut % (Auto) 73.0 Lymph % (Auto) 19.3 L [place] % (Auto) 6.4 Eos % (Auto) 0.5 Baso % (Auto) 0.5 Lymph # (Auto) 1.9 [place] # (Auto) 0.6 Eos # (Auto) 0.1 Baso # (Auto) 0.1 Abs Immat Gran (auto) 0.03 Absolute Neuts (auto) 7.2 Absolute Nucleated RBC 0.000 Nucleated RBC % (auto) 0.0 Sodium Potassium Chloride Carbon Dioxide Anion Gap BUN Creatinine Estim Creat Clear Calc Estimated GFR Random Glucose Estimat Average Glucose Hemoglobin A1c % Calcium Magnesium Total Bilirubin AST ALT Alkaline Phosphatase Total Protein Albumin Triglycerides Cholesterol LDL Cholesterol, Calc HDL Cholesterol Vitamin B12 Folate TSH Free T4 Urine Color Yellow Urine Appearance Clear Urine pH 7.0 Ur Specific [place] >= 1.030 H Urine Protein Trace Urine Glucose (UA) Negative Urine Ketones Trace Urine Blood Negative Urine Nitrite Negative Ur Leukocyte Esterase Negative Urine Opiates Screen Not Detected Urine Fentanyl Screen Not Detected Ur Barbiturates Screen Not Detected Ur Phencyclidine Scrn Not Detected Ur Amphetamines Screen Not Detected U Benzodiazepines Scrn Not Detected Urine Cocaine Screen Not Detected U Marijuana (THC) Screen POSITIVE H Ethyl Alcohol COVID-19 (FRAN) COVID-19 Clin Com 07/14/22 07/14/22 07/15/22 13:17 13:17 08:57 WBC RBC Hgb Hct MCV MCH MCHC RDW Plt Count MPV Immature Gran % (Auto) Neut % (Auto) Lymph % (Auto) [place] % (Auto) Eos % (Auto) Baso % (Auto) Lymph # (Auto) [place] # (Auto) Eos # (Auto) Baso # (Auto) Abs Immat Gran (auto) Absolute Neuts (auto) Absolute Nucleated RBC Nucleated RBC % (auto) Sodium 139 Potassium 3.9 Chloride 101 Carbon Dioxide 27 Anion Gap 15 BUN 16 Creatinine 0.99 Estim Creat Clear Calc 110.6 Estimated GFR > 60 Random Glucose 145 H Estimat Average Glucose 100 Hemoglobin A1c % 5.1 Calcium 10.1 Magnesium Total Bilirubin 0.5 AST 20 ALT 25 Alkaline Phosphatase 81 Total Protein 7.7 Albumin 4.8 Triglycerides Cholesterol LDL Cholesterol, Calc HDL Cholesterol Vitamin B12 Folate TSH Free T4 Urine Color Urine Appearance Urine pH Ur Specific [place] Urine Protein Urine Glucose (UA) Urine Ketones Urine Blood Urine Nitrite Ur Leukocyte Esterase Urine Opiates Screen Urine Fentanyl Screen Ur Barbiturates Screen Ur Phencyclidine Scrn Ur Amphetamines Screen U Benzodiazepines Scrn Urine Cocaine Screen U Marijuana (THC) Screen Ethyl Alcohol < 10 COVID-19 (FRAN) Negative COVID-19 Clin Com See Note 07/15/22 07/15/22 08:57 08:57 WBC RBC Hgb Hct MCV MCH MCHC RDW Plt Count MPV Immature Gran % (Auto) Neut % (Auto) Lymph % (Auto) [place] % (Auto) Eos % (Auto) Baso % (Auto) Lymph # (Auto) [place] # (Auto) Eos # (Auto) Baso # (Auto) Abs Immat Gran (auto) Absolute Neuts (auto) Absolute Nucleated RBC Nucleated RBC % (auto) Sodium Potassium Chloride Carbon Dioxide Anion Gap BUN Creatinine Estim Creat Clear Calc Estimated GFR Random Glucose Estimat Average Glucose Hemoglobin A1c % Calcium Magnesium 2.1 Total Bilirubin AST ALT Alkaline Phosphatase Total Protein Albumin Triglycerides 77 Cholesterol 167 LDL Cholesterol, Calc 94 HDL Cholesterol 58 Vitamin B12 384 Folate 11.2 TSH 1.13 Free T4 0.95 Urine Color Urine Appearance Urine pH Ur Specific [place] Urine Protein Urine Glucose (UA) Urine Ketones Urine Blood Urine Nitrite Ur Leukocyte Esterase Urine Opiates Screen Urine Fentanyl Screen Ur Barbiturates Screen Ur Phencyclidine Scrn Ur Amphetamines Screen U Benzodiazepines Scrn Urine Cocaine Screen U Marijuana (THC) Screen Ethyl Alcohol COVID-19 (FRAN) COVID-19 Clin Com DS: Summary Hospital Course Hospital Course: per 07/15 admission note: pt reports he had a manic episode 8 yrs ago and was hospitalized on M5.? he states that in recent weeks he has been feeling not himself, and he has begun to experience symptoms which remind him of that time 8 years ago and he wants to get things under control before things get dangerous.? describes labile mood, depressed mood intermittently, pressured speech, crying jags, binge drinking to manage symptoms, visions that are intensifying, focus on wanting to tell others about various numbers and their significance to his life (which he follows up with, and that's not normal ).? attempted suicide 8 yrs ago, last time he was manic.? discuss medication options, pt not keen on tegretol, had bad experiences on VPA and lithium.? asks to restart seroquel, which he had when he was on M5 8 years ago.? will start 25 PRN agitation and 100 QHS. Past Psychiatric History: pt believes he has ADHD from childhood but he was never diagnosed or treated.? he smokes cannabis daily, which he believes helps with his ADHD. in 5th grade he was holding/playing with a knife near his heart and perhaps having thoughts about connecting the two. ? he told sis, who told mom, and he saw therapist in school for a bit. at 21-21 yo he was using a lot of drugs, such as cocaine, nori; got psychotic and [facility] 23 yo had what he describes as a manic episode and was hospitalized on M5.? was on seroquel and VPA. reports feeling numbed out on lithium and like a zombie on VPA. made a lot of chloroform and tried to kill himself with it by inhaling as much as he could. no reported SIBI. no mental health care in the past 8 years.? stopped meds not long after leaving the hospital. Medical Evaluation Reviewed: Yes [facility] Narrative: acute pancreatitis reported after COVID booster GERD s/p choly Family History: sister - likely bipolar mother - likely the same.? nervous breakdown in her 20's. second sister - manic-ness Social History: lives in [place], rents, has one roommate. 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 4.5 yrs of college, no degree. engaged these past 3 weeks, never . cherie lives in [place] with her 14 yo child. Substance History: cannabis - daily for even mood alcohol - generally minimal, sparse.? escalates when manic. ? binge drinking QOD the past week.? wasn't drinking at all a month ago. tobacco - vape/smokes when drinking Trauma History: none reported 07/16: ?The nursing staff reported the patient has been compliant and pleasant, he was seen yesterday crying his room.? On interview the patient reported that he was were sedated with the 1st dose of Seroquel at night and he has complained of nightmares.? We discussed options and he agreed to try prazosin at night to target nightmares.? No active suicidal or homicidal thoughts 07/17: The nursing staff reported the patient has been compliant with treatment.? Last night he reported nightmares even though that we started prazosin last night.? He woke up at 01:00 o'clock in the morning.? On interview the patient reports some auditory hallucinations and paranoia and he reported no improvement with prazosin 1 mg p.o. q.h.s. to target nightmares.? We discussed options and he agreed to increase up to 2 mg at night 07/18: calm, cooperative.? feeling well over the weekend.? using both trazodone and seroquel at HS for sleep.? also c/o nightmares, which only started once he came into the hospital.? agreeable to DC trazodone and increase seroquel at HS for sleep, both to address bipolar disorder Sx and to avoid vivid dreams caused by trazodone.? planning to discharge tomorrow.? per staff, anxious and depressed.? some conflict with his sister spreading word of his mental health challenges.? visible, pleasant, safe.? in a good space. ? slept well after trazodone. 07/19: stable, calm, cooperative. slept well. noted he had also had the nicotine patch on the nights he was having nightmares. meds reviewed, reconciled, and prescribed. pt discharged to outpt F/U. Precis: started seroquel 25 mg Q4H PRN agitation and 100 mg QHS for mixed pepper. started Prazosin for nightmares, titrated up to 2 mg po qhs as of 07/17. trazodone DCed 07/18 due to vivid dreams/nightmares, seroquel at HS increased to 150 with 50 repeat PRN. discharged 07/19 per pt request, aftercare in place. Time Spent with Patient Time attestation: Total time spent providing and/or coordinating discharge services: Time spent: Greater than 30 minutes Discharge Plan Discharge Anticipated Discharge Date/Time: 07/19/22 10:30 Patient Disposition: Home, Self-Care Discharge Diagnosis: Bipolar I Disorder, MRE Mixed Referrals: Zhang Guerrero (therapy intake) [Other] - 08/02/22 2:00 pm (In-person appointment. Follow-up appointments can be telehealth if requested. Once you complete the therapy intake, you can be scheduled for a psychiatry appointment) Mario Hood MD [Physician] - 08/09/22 7:15 am Discharge Medications: New quetiapine 25 mg Tablet 25 mg PO BID PRN (Reason: agitation) 30 Days Qty: 60 1RF prazosin 1 mg Capsule 2 mg PO BEDTIME 30 Days Qty: 60 1RF Protocol: Hold for SBP< HOLD for SBP < : 90 quetiapine 50 mg Tablet 200 mg PO BEDTIME 30 Days Qty: 120 1RF Continued omeprazole 40 mg capsule,delayed release(DR/EC) 1 cap PO DAILY Discharge Orders: Discharge Order (Routine); Ordered 07/19/22 Ordered By: Kapil House Diet: Advance to usual diet Activity on Discharge: As tolerated Stand Alone Forms: Patient Portal Discharge page, Community Support Care Plan Goals: remain safe and stable in the outpatient treatment setting Health Concerns: GERD Plan of Treatment: take medications as prescribed, attend appointments as scheduled Assessment: not at imminent risk of harm to self or others Discharge Date/Time: 07/19/22 10:34
== END 2022-07-19 10:34 | disposition home or self-care (01) | DRG 885 ==
LOC: HO.ED 20:02 → HO.PADLT16 22:46
PROVIDERS: Nurse Practitioner Family; Registered Nurse; Admitting Provider Psychiatry & Neurology Psychiatry; Emergency Provider Emergency Medicine; Visit Provider Psychiatry & Neurology Psychiatry
DX: F31.10 Bipolar disorder, current episode manic without psychotic features, unspecified (principal); F90.9 Attention-deficit hyperactivity disorder, unspecified type; F17.210 Nicotine dependence, cigarettes, uncomplicated; Z71.6 Tobacco abuse counseling; Z20.822 Contact with and (suspected) exposure to COVID-19; Z79.899 Other long term (current) drug therapy
CPT/HCPCS: 36415; 80053; 80061; 80307; 81003; 82077; 82607; 82746; 83036; 83735; 84439; 84443; 85025; 87635; 93005; 99285

== ENCOUNTER 2022-12-02 11:43 | Inpatient (IN) | payer OTHER, SELFPAY ==
--- NOTE | ~2022-12-02 | MR_ITS ---
MRI OF THE BRAIN WITHOUT IV CONTRAST INDICATION: Migraine headache. COMPARISON: None available TECHNIQUE: Multiplanar multisequence MR imaging of the brain was obtained without IV contrast. FINDINGS: There is no hydrocephalus, extra-axial surface collection, or herniation. No parenchymal signal abnormality. The major flow voids at the skull base are preserved. There is no acute infarct on diffusion-weighted imaging. There is no intracranial hemorrhage on the gradient recalled echo acquisition. The midline structures are normal. The cerebellar tonsils are normally positioned. The cerebellum and brainstem are normal. The craniocervical junction is normal. Osseous marrow signal intensity is homogenous. The visualized soft tissues are unremarkable. There is a retention cyst within the right maxillary sinus and there is mild mucosal thickening within the left maxillary sinus and throughout the ethmoid air cells bilaterally. MR/MR head/brain wo con IMPRESSION: - Unremarkable noncontrast MRI of the brain. - There is a retention cyst within the right maxillary sinus and there is mild mucosal thickening within the left maxillary sinus and throughout the ethmoid air cells bilaterally.
[2022-12-02 12:24] VITALS: BP 135/89; PULSE 90; RESP 20; TEMP 36.6; O2SAT 97; BMI 23.6
--- NOTE | 2022-12-02 12:33 | PC.NURSE ---
32 y/o M pw increased stress and anxiety, SI w/out plan. pt states he has been having increased panic attacks. pt denies AH/VH, VSS, no other complaints. pt changed into hospital gown, belongings secured, awaiting
--- NOTE | 2022-12-02 12:42 | ED_ITS ---
HPI - Psych General Chief Complaint: Psychiatric Symptoms Stated Complaint: Crisis/SI Time Seen by Provider: 12/02/22 12:31 Source: patient Mode of arrival: ambulatory Limitations: no limitations History of Present Illness HPI Narrative: 32 year old male with history of bipolar, depression, anxiety presents with co mplaints of panic attacks, increasing anxiety, depression, suicidal thoughts with no plan over the last few weeks. Patient reports the psychiatrist is currently when him off Seroquel. He also does have a therapist. No substance use history Related Data Home Medications Medication Instructions Recorded Confirmed omeprazole 40 mg capsule,delayed 1 cap PO DAILY 07/14/22 07/14/22 release Previous Rx's Medication Instructions Recorded prazosin 1 mg capsule 2 mg PO BEDTIME 30 days #60 caps 07/19/22 quetiapine 25 mg tablet 25 mg PO BID PRN agitation 30 days 07/19/22 #60 tabs quetiapine 50 mg tablet 200 mg PO BEDTIME 30 days #120 tabs 07/19/22 Allergies Allergy/AdvReac Type Severity Reaction Status Date / Time aripiprazole [From [facility]] AdvReac Unknown FELT HE Verified 07/14/22 17:15 WAS CRAWLING OUT OF HIS SKIN Review of Systems Review of Systems: Yes all other systems are reviewed and are negative Constitutional: Constitutional: Reports no additional constitutional complaints, Denies body ache(s), Denies chills, Denies fever(s), Denies headache(s) and Denies weakness Eyes: Eyes: Reports no additional eye complaints and Denies change in vision ENT: Reports system reviewed and no additional complaints, except as documented, Denies dizziness, Denies headache(s), Denies nasal congestion, Denies nasal discharge and Denies neck pain Cardiovascular: Cardiovascular: Reports no additional cardiovascular complaints, Denies chest pain, Denies leg edema and Denies dyspnea Respiratory: Respiratory: Reports no additional respiratory complaints, Denies cough and Denies dyspnea Gastrointestinal: Gastrointestinal: Reports no additional gastrointestinal complaints, Denies abdominal pain, Denies diarrhea, Denies nausea and Denies vomiting Genitourinary: Genitourinary: Denies urinary incontinence Musculoskeletal: Musculoskeletal: Reports no additional musculoskeletal complaints, Denies back pain, Denies arthralgias, Denies joint swelling, Denies neck pain, Denies numbness and Denies tingling Integumentary/Breasts: Skin/Breast: Reports system reviewed and no additional complaints, except as docu and Denies rash Neurologic: Reports system reviewed and no additional complaints, except as documented, Denies Abnormal speech present, Denies dizziness, Denies headache(s), Denies numbness, Denies tingling and Denies weakness Psychiatric: Psychiatric: Reports anxiety, Reports depression and Reports suicidal ideation [facility] Past Medical History Attestation statement: The following information was validated with the patient. Source: old records reviewed and nursing notes reviewed Social History Social History Household Members: Other Household Members Other:: roommate Housing: Apartment Do you presently have visiting nurse or other home services: No Alcohol intake: current Alcohol intake frequency: does not drink Patient Tobacco Use Status: Current someday Tobacco user Tobacco use type: Cigarette Cigarettes Per Day: 5 Years Smoked: 15 Smoked in Last 30 Days: No e-Cigarette/Vaping Use: Currently Using Use of substances other than those prescribed or required for medical reasons: No Substance Use Type: Marijuana Advance Directives: No Advance Directives Information Provided: Yes Healthcare Proxy: No Guardian: No service: No Sexual orientation: Straight/Heterosexual Physical Exam Vital Signs: Vital Signs: Last Vital Signs Temp 97.8 F 12/02/22 12:24 Pulse 90 12/02/22 12:24 Resp 20 12/02/22 12:24 BP 135/89 12/02/22 12:24 Pulse Ox 97 12/02/22 12:24 O2 Del Method 12/02/22 12:24 BMI result Body Mass Index 23.6 Const: General: cooperative, healthy appearing, comfortable and no acute distress Orientation/consciousness: patient oriented x3 Limitations: no limitations HEENT: Head: Yes normal to inspection Ears: hearing grossly normal bilaterally General nose exam: Normal external nose present Face and sinus: Yes normal facial exam Mouth: Normal oral and palatal mucosa present Throat: Yes posterior oropharynx normal Eyes: General: appearance normal, both eyes and all related structures Pupils: Equal, round and reactive pupils present Neck: Neck: Yes normal visual inspection Chest: Chest palpation & inspection: normal inspection of the chest Resp: Effort & Inspection: normal respiratory effort Auscultation: clear to auscultation bilaterally Cardio: Rate: regular rate Rhythm: regular rhythm Peripheral pulses: Peripheral pulses 2+ throughout GI: Inspection: Yes normal to inspection Palpation (GI): Soft to palpation and nontender Auscultation: normal bowel sounds Back/Spine/Pelvis: Thoracic/Lumbar Spine: thoracic and lumbar spine normal to inspection Skin: General skin exam: no rashes or lesions noted Neuro: General: patient oriented x3, no focal motor deficits and normal sensation to monofilament Cranial nerves: Yes Equal, round and reactive pupils present Cognition (Neuro): normal cognition Speech: No Abnormal speech present Gait exam (Neuro): Normal gait present Motor exam (neuro): 5/5 motor strength present throughout Extrem: General: Yes normal to inspection, Yes no pedal edema and Yes no calf tenderness Course Course Course Narrative: Reviewed labs, tox screen. No concern for acute ingestion or trauma. Plan for voluntary bed search. Patient placed in physician observation pending disposition Medications Administered Generic Name Dose Route Start Last Admin Trade Name Freq PRN Reason Stop Dose Admin Lorazepam 0.5 mg 12/02/22 14:40 12/02/22 16:18 Lorazepam 0.5 Mg Tablet PO 0.5 mg Q6H PRN Administration Anxiety Medical Decision Making Medical Decision Making [facility] Narrative: 32-year-old male here with complaints of increasing depression, anxiety, vague suicidal thoughts the last few weeks. Patient has been titrating his Seroquel to come off of it. Will need labs, tox screen, COVID screen, crisis consultation Differential Diagnosis Differential Diagnoses: The differential diagnosis associated with the presentation includes Depression, anxiety, bipolar disorder Consult Healthcare Provider Management of the patient was discussed with: Behavioral Health Provider Patient was seen by care team. Plan for inpatient voluntary bed search for psych Lab Data [facility] Lab Attestation statement: I reviewed the patient's lab results. 12/02/22 12:51 12/02/22 12:51 Labs: Lab Results 12/02/22 12/02/22 12/02/22 Range/Units 12:51 12:51 12:51 WBC 6.3 (4.8-10.8) X10*3/uL RBC 4.60 (4.60-5.80) X10*6/uL Hgb 14.6 (14.0-18.0) g/dl Hct 40.9 L (42.0-52.0) % MCV 88.9 (80.0-98.0) fL MCH 31.7 (27.0-33.0) pg MCHC 35.7 (31.0-36.0) g/dl RDW 11.8 (11.0-16.0) % Plt Count 300 (160-400) X10*3/uL MPV 9.0 L (9.4-12.4) fL Immature Gran % (Auto) 0.2 (0.0-0.4) % Neut % (Auto) 63.0 (45-73) % Lymph % (Auto) 28.6 (20-40) % [place] % (Auto) 6.8 (2-11) % Eos % (Auto) 0.6 (0-4) % Baso % (Auto) 0.8 (0-2) % Lymph # (Auto) 1.8 (1.2-4.9) X10*3/uL [place] # (Auto) 0.4 (0.1-1.2) X10*3/uL Eos # (Auto) 0.0 (0.0-0.4) X10*3/uL Baso # (Auto) 0.1 (0.0-0.2) X10*3/uL Abs Immat Gran (auto) 0.01 (0.00-0.03) X10*3/uL Absolute Neuts (auto) 4.0 (2.0-8.3) x10*3/uL Absolute Nucleated RBC 0.000 (0.0-0.012) X10*3/uL Nucleated RBC % (auto) 0.0 (0.0-0.2) /100WBC Sodium 141 (135-145) mmol/L Potassium 4.1 (3.3-5.1) mmol/L Chloride 107 (96-108) mmol/L Carbon Dioxide 25 (22-29) mmol/L Anion Gap 13 (12-20) BUN 9 (9-16) mg/dL Creatinine 1.03 (0.5-1.4) mg/dL Estim Creat Clear Calc 105.3 Estimated GFR > 60 Random Glucose 94 (60-115) mg/dL Calcium 9.7 (8.4-10.2) mg/dL Magnesium 2.1 (1.6-2.6) mg/dL Total Bilirubin 0.7 (0.0-1.0) mg/dL AST 21 (5-37) U/L ALT 31 (0-40) U/L Alkaline Phosphatase 72 (39-117) U/L Total Protein 7.1 (6.5-8.0) g/dL Albumin 4.5 (3.5-5.0) g/dL Urine Color Urine Appearance Urine pH (5.0-9.0) Ur Specific [place] (1.005-1.025) Urine Protein (Neg-Trace) mg/dL Urine Glucose (UA) (Negative) mg/dL Urine Ketones (Negative) mg/dL Urine Blood (Negative) Urine Nitrite (Negative) Ur Leukocyte Esterase (Negative) Urine Opiates Screen (Not Detect) Urine Fentanyl Screen (Not Detect) Ur Barbiturates Screen (Not Detect) Ur Phencyclidine Scrn (Not Detect) Ur Amphetamines Screen (Not Detect) U Benzodiazepines Scrn (Not Detect) Urine Cocaine Screen (Not Detect) U Marijuana (THC) Screen (Not Detect) Ethyl Alcohol < 10 mg/dL Influenza Type A (PCR) NEGATIVE (Negative) Influenza Type B (PCR) NEGATIVE (Negative) RSV RNA Qual (PCR) NEGATIVE (Negative) SARS-CoV-2 RNA (RT-PCR) NEGATIVE (Negative) 12/02/22 12/02/22 Range/Units 12:51 12:51 WBC (4.8-10.8) X10*3/uL RBC (4.60-5.80) X10*6/uL Hgb (14.0-18.0) g/dl Hct (42.0-52.0) % MCV (80.0-98.0) fL MCH (27.0-33.0) pg MCHC (31.0-36.0) g/dl RDW (11.0-16.0) % Plt Count (160-400) X10*3/uL MPV (9.4-12.4) fL Immature Gran % (Auto) (0.0-0.4) % Neut % (Auto) (45-73) % Lymph % (Auto) (20-40) % [place] % (Auto) (2-11) % Eos % (Auto) (0-4) % Baso % (Auto) (0-2) % Lymph # (Auto) (1.2-4.9) X10*3/uL [place] # (Auto) (0.1-1.2) X10*3/uL Eos # (Auto) (0.0-0.4) X10*3/uL Baso # (Auto) (0.0-0.2) X10*3/uL Abs Immat Gran (auto) (0.00-0.03) X10*3/uL Absolute Neuts (auto) (2.0-8.3) x10*3/uL Absolute Nucleated RBC (0.0-0.012) X10*3/uL Nucleated RBC % (auto) (0.0-0.2) /100WBC Sodium (135-145) mmol/L Potassium (3.3-5.1) mmol/L Chloride (96-108) mmol/L Carbon Dioxide (22-29) mmol/L Anion Gap (12-20) BUN (9-16) mg/dL Creatinine (0.5-1.4) mg/dL Estim Creat Clear Calc Estimated GFR Random Glucose (60-115) mg/dL Calcium (8.4-10.2) mg/dL Magnesium (1.6-2.6) mg/dL Total Bilirubin (0.0-1.0) mg/dL AST (5-37) U/L ALT (0-40) U/L Alkaline Phosphatase (39-117) U/L Total Protein (6.5-8.0) g/dL Albumin (3.5-5.0) g/dL Urine Color Yellow Urine Appearance Clear Urine pH 6.5 (5.0-9.0) Ur Specific [place] 1.015 (1.005-1.025) Urine Protein Negative (Neg-Trace) mg/dL Urine Glucose (UA) Negative (Negative) mg/dL Urine Ketones Negative (Negative) mg/dL Urine Blood Negative (Negative) Urine Nitrite Negative (Negative) Ur Leukocyte Esterase Negative (Negative) Urine Opiates Screen Not Detected (Not Detect) Urine Fentanyl Screen Not Detected (Not Detect) Ur Barbiturates Screen Not Detected (Not Detect) Ur Phencyclidine Scrn Not Detected (Not Detect) Ur Amphetamines Screen Not Detected (Not Detect) U Benzodiazepines Scrn Not Detected (Not Detect) Urine Cocaine Screen Not Detected (Not Detect) U Marijuana (THC) Screen Not Detected (Not Detect) Ethyl Alcohol mg/dL Influenza Type A (PCR) (Negative) Influenza Type B (PCR) (Negative) RSV RNA Qual (PCR) (Negative) SARS-CoV-2 RNA (RT-PCR) (Negative) Discharge Plan Discharge Clinical Impression: Depression, Acute anxiety Patient Disposition: Admitted As Inpatient Interventions: Steele-Suicide Risk Severity Scale Last Done: 12/02/22 12:32
[2022-12-02 12:57] LABS: MANUAL DIFF FLAG NO
[2022-12-02 13:02] LABS: Basophils Absolute Auto 0.1 X10*3/uL (0.0-0.2); Basophils Percent Auto 0.8 % (0-2); Eosinophils Percent Auto 0.6 % (0-4); Hematocrit 40.9 % (42.0-52.0); Hemoglobin 14.6 g/dl (14.0-18.0); Imm Gran Abs Auto 0.01 X10*3/uL (0.00-0.03); Imm Gran Pct Auto 0.2 % (0.0-0.4); Lymphocytes Absolute Auto 1.8 X10*3/uL (1.2-4.9); Lymphocytes Percent Auto 28.6 % (20-40); Mean Corpuscular HGB Conc 35.7 g/dl (31.0-36.0); Mean Corpuscular Hemoglobin 31.7 pg (27.0-33.0); Mean Corpuscular Volume 88.9 fL (80.0-98.0); Monocytes Absolute Auto 0.4 X10*3/uL (0.1-1.2); Monocytes Percent Auto 6.8 % (2-11); Platelet Count 300 X10*3/uL (160-400); Red Cell Distribution Width 11.8 % (11.0-16.0); White Blood Count 6.3 X10*3/uL (4.8-10.8)
[2022-12-02 13:04] LABS: Appearance Urine Clear; Color Urine Yellow; Glucose Urine UA Negative (Negative); Leukocyte Esterase Urine Negative (Negative); Nitrite Urine Negative (Negative); PH 6.5 (5.0-9.0); Specific Gravity - Urine 1.015 (1.005-1.025); Urine Blood Negative (Negative); Urine Ketones Negative (Negative); Urine Protein Negative (Neg-Trace)
[2022-12-02 13:13] LABS: Amphetamine Screen Urine Not Detected (Not Detect); Barbiturates, Urine Not Detected (Not Detect); Benzodiazepines Screen Urine Not Detected (Not Detect); Cannabinoid Screen Urine Not Detected (Not Detect); Cocaine Screen Urine Not Detected (Not Detect); Fentanyl, urine Not Detected (Not Detect); Opiate Screen Urine Not Detected (Not Detect); Phencyclidine Screen Urine Not Detected (Not Detect)
[2022-12-02 13:18] LABS: Alanine Aminotransferase 31 U/L (0-40); Albumin Level 4.5 g/dL (3.5-5.0); Alkaline Phosphatase 72 U/L (39-117); Anion Gap 13 (12-20); Aspartate Amino Transferase 21 U/L (5-37); Bilirubin Total 0.7 mg/dL (0.0-1.0); Blood Urea Nitrogen 9 mg/dL (9-16); Calcium 9.7 mg/dL (8.4-10.2); Carbon Dioxide 25 mmol/L (22-29); Chloride 107 mmol/L (96-108); Creatinine Clr Calc Pharmacy 105.3; Estimated Glomerular Filt Rate > 60; Ethanol < 10 mg/dL; Glucose Random 94 mg/dL (60-115); Magnesium 2.1 mg/dL (1.6-2.6); Potassium 4.1 mmol/L (3.3-5.1); Sodium 141 mmol/L (135-145); Total Protein 7.1 g/dL (6.5-8.0)
[2022-12-02 13:42] LABS: Influenza A PCR NEGATIVE (Negative); Influenza B PCR NEGATIVE (Negative); Resp Syncy Virus RNA Qual PCR NEGATIVE (Negative); SARS COV2 PCR INHOUSE NEGATIVE (Negative)
[2022-12-02] MEDS: LORazepam 0.5 MG TABLET PO (16:18)
--- NOTE | 2022-12-02 16:18 | PC.NURSE ---
pt endorsing increased anxiety, given PRN PO ativan as ordered.
[2022-12-02 18:00] VITALS: BP 132/84; PULSE 82; RESP 16; TEMP 36.6; O2SAT 99
--- NOTE | 2022-12-02 18:24 | PC.NURSE ---
dinner tray delivered, pt resting comfortably in bed, VSS, in no apparent distress, awaiting transport to
[2022-12-02] MEDS: hydrOXYzine HCL 25 MG TABLET PO (19:43)
[2022-12-03] MEDS: hydrOXYzine HCL 25 MG TABLET PO ×2 (06:19→14:57)
[2022-12-03 07:26] LABS: Alanine Aminotransferase 29 U/L (0-40); Albumin Level 4.3 g/dL (3.5-5.0); Alkaline Phosphatase 69 U/L (39-117); Anion Gap 13 (12-20); Aspartate Amino Transferase 20 U/L (5-37); Bilirubin Total 0.7 mg/dL (0.0-1.0); Blood Urea Nitrogen 14 mg/dL (9-16); Calcium 9.5 mg/dL (8.4-10.2); Carbon Dioxide 27 mmol/L (22-29); Chloride 105 mmol/L (96-108); Cholesterol 163 mg/dL; Creatinine Clr Calc Pharmacy 97.7; Estimated Glomerular Filt Rate > 60; Glucose Fasting 97 mg/dL (60-99); HDL Cholesterol 43 mg/dL; LDL Cholesterol Calculated 110 mg/dl; Potassium 4.4 mmol/L (3.3-5.1); Sodium 141 mmol/L (135-145); Total Protein 6.7 g/dL (6.5-8.0); Triglycerides 50 mg/dL
[2022-12-03 09:21] VITALS: BP 127/82; PULSE 106; RESP 20; TEMP 36.7; O2SAT 98
--- NOTE | 2022-12-03 10:26 | HO.PSYADMNOT ---
HPI Date of Service: 12/05/22 Chief Complaint: Alondra Sources of Information: patient interviewed, chart reviewed and crisis/core team assessment reviewed HPI Subjective Notes: Miller Warning and Conditional Voluntary Narrative: Mr. Mazariegos is a 32 year-old male with hx of Bipolar Disorder who self presented to [facility] reporting increase confusion (cognitive fogginess poor attention with feeling forgetful not fully alert), anxiety, visual changes some light around people briefly which goes away and double vision (does not appear to be hallucinations), depressed mood, no suicidal ideation. Utox is negative. BAL is neg. Pt known to M3 through previous admission back in 07/2022 for alondra. On the unit, pt reports he has not been able to function at work as he used to; poor attention (does have hx of ADHD) but also reports cognitive fogginess and cognitive slowing which is different from what he has experienced in the past with ADHD. He reports seeing halo, white light briefly around people. He also reports feeling tired and weak. He reports feeling anxious, at times having increase heart rate, hyperventilating. He reports feeling overwhelmed due to the fact that his is expecting their first child. He reports feeling depressed. No plan or intent to harm himself. He denies VH/AH. He reports fair sleep. He reports he was given strattera 2 weeks ago but stopped because it made me crazy. He reports he became even more agitated. He reports he has not used alcohol in about one month. He denies any other substances. He reports he has been taking seroquel for a long time. Past Psychiatric History: Inpt: M5, M3 2022 OP: looking for new OP provider but sees provider in [place], [place] Medical Evaluation Reviewed: Yes [facility] Family History: sister - likely bipolar mother - likely the same. nervous breakdown in her 20's. second sister - manic-ness Social History: lives in [place], rents, has one roommate. 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 4.5 yrs of college, no degree. engaged these past 3 weeks, never . cherie lives in [place] with her 14 yo child. Substance History: hx of alcohol, cocaine use. Pt reports he has not used cocaine in 5 years. Pt reports last drink in about one month ago. Trauma History: none reported Diagnostics Vital Signs (24Hr): Vital Signs - 24 hr 12/02/22 12:24 12/02/22 18:00 12/03/22 09:21 Temperature 97.8 F 97.8 F 98.0 F Pulse Rate 90 82 106 H Respiratory Rate 20 16 20 Blood Pressure 135/89 132/84 127/82 Pulse Oximetry 97 99 98 Oxygen Delivery Method Room Air Room Air Room Air BMI result Body Mass Index 23.6 Labs 12/02/22 12:51 12/03/22 06:47 Labs: Laboratory Results - last 48 hr 12/02/22 12/02/22 12/02/22 12:51 12:51 12:51 WBC 6.3 RBC 4.60 Hgb 14.6 Hct 40.9 L MCV 88.9 MCH 31.7 MCHC 35.7 RDW 11.8 Plt Count 300 MPV 9.0 L Immature Gran % (Auto) 0.2 Neut % (Auto) 63.0 Lymph % (Auto) 28.6 Dillon % (Auto) 6.8 Eos % (Auto) 0.6 Baso % (Auto) 0.8 Lymph # (Auto) 1.8 Dillon # (Auto) 0.4 Eos # (Auto) 0.0 Baso # (Auto) 0.1 Abs Immat Gran (auto) 0.01 Absolute Neuts (auto) 4.0 Absolute Nucleated RBC 0.000 Nucleated RBC % (auto) 0.0 Sodium 141 Potassium 4.1 Chloride 107 Carbon Dioxide 25 Anion Gap 13 BUN 9 Creatinine 1.03 Estim Creat Clear Calc 105.3 Estimated GFR > 60 Random Glucose 94 Fasting Glucose Calcium 9.7 Magnesium 2.1 Total Bilirubin 0.7 AST 21 ALT 31 Alkaline Phosphatase 72 Total Protein 7.1 Albumin 4.5 Triglycerides Cholesterol LDL Cholesterol, Calc HDL Cholesterol Urine Color Urine Appearance Urine pH Ur Specific Darby Urine Protein Urine Glucose (UA) Urine Ketones Urine Blood Urine Nitrite Ur Leukocyte Esterase Urine Opiates Screen Urine Fentanyl Screen Ur Barbiturates Screen Ur Phencyclidine Scrn Ur Amphetamines Screen U Benzodiazepines Scrn Urine Cocaine Screen U Marijuana (THC) Screen Ethyl Alcohol < 10 Influenza Type A (PCR) NEGATIVE Influenza Type B (PCR) NEGATIVE RSV RNA Qual (PCR) NEGATIVE SARS-CoV-2 RNA (RT-PCR) NEGATIVE 12/02/22 12/02/22 12/03/22 12:51 12:51 06:47 WBC RBC Hgb Hct MCV MCH MCHC RDW Plt Count MPV Immature Gran % (Auto) Neut % (Auto) Lymph % (Auto) Dillon % (Auto) Eos % (Auto) Baso % (Auto) Lymph # (Auto) Dillon # (Auto) Eos # (Auto) Baso # (Auto) Abs Immat Gran (auto) Absolute Neuts (auto) Absolute Nucleated RBC Nucleated RBC % (auto) Sodium 141 Potassium 4.4 Chloride 105 Carbon Dioxide 27 Anion Gap 13 BUN 14 Creatinine 1.11 Estim Creat Clear Calc 97.7 Estimated GFR > 60 Random Glucose Fasting Glucose 97 Calcium 9.5 Magnesium Total Bilirubin 0.7 AST 20 ALT 29 Alkaline Phosphatase 69 Total Protein 6.7 Albumin 4.3 Triglycerides 50 Cholesterol 163 LDL Cholesterol, Calc 110 HDL Cholesterol 43 Urine Color Yellow Urine Appearance Clear Urine pH 6.5 Ur Specific Darby 1.015 Urine Protein Negative Urine Glucose (UA) Negative Urine Ketones Negative Urine Blood Negative Urine Nitrite Negative Ur Leukocyte Esterase Negative Urine Opiates Screen Not Detected Urine Fentanyl Screen Not Detected Ur Barbiturates Screen Not Detected Ur Phencyclidine Scrn Not Detected Ur Amphetamines Screen Not Detected U Benzodiazepines Scrn Not Detected Urine Cocaine Screen Not Detected U Marijuana (THC) Screen Not Detected Ethyl Alcohol Influenza Type A (PCR) Influenza Type B (PCR) RSV RNA Qual (PCR) SARS-CoV-2 RNA (RT-PCR) Meds/Allergies Meds Home Medications Medication Instructions Recorded Confirmed Type omeprazole 40 mg capsule,delayed 1 cap PO DAILY 07/14/22 12/03/22 History release atomoxetine 25 mg capsule 1 cap PO QAM 12/03/22 12/03/22 History hydroxyzine HCl 10 mg tablet 1 - 2 tab PO BID PRN Anxiety 12/03/22 12/03/22 History quetiapine 50 mg tablet 100 mg PO BEDTIME 12/03/22 12/03/22 History Allergies Allergies Allergy/AdvReac Type Severity Reaction Status Date / Time aripiprazole [From [facility]] AdvReac Unknown FELT HE Verified 07/14/22 17:15 WAS CRAWLING OUT OF HIS SKIN Mental Status Exam Mental Status Exam Narrative: Appearance: wearing hospital gown, in NAD Behavior: cooperative Psychomotor: no agitation or retardation noted Speech: clear, normal rate/rhythm/volume, spontaneous TP: linear TC: no signs of psychosis or delusions, feeling unable to function as he was Mood: depressed Affect: blunted SI: passive, no plan or intent HI: none VH/AH: none Delusions: none Insight/judgment: fair x 2. Memory/cog: alert, oriented x 3. Assessment & Plan Assessment & Plan (1) Bipolar disorder with depression: Status: Acute Code(s): F31.9 - Bipolar disorder, unspecified Plan Mr. Mazariegos is a 32 year-old male with hx of Bipolar Disorder, alcohol and cocaine use in remission who self presented with somewhat unusual symptoms for his typical presentation when depressed or manic. Pt reports having cognitive fogginess and cognitive slowness, anxious mood, visual changes (does not appear to be hallucinations- seeing some white light briefly around some people), headaches. He does report depressed mood and feeling overwhelmed as he is expecting first child. He reports not able to function at work as he used to. We discussed risks, benefits and alternative treatment. We discussed r/o neurological etiology for these unusual presentation despite hx of Bipolar including seizures, mass effect. PLAN 1. Admit to , CV, 15 minutes checks for safety 2. May consider switch to latuda for bipolar depression 3. Obtain collateral information 4. Aftercare planning. Patient educated on: diagnosis Reason for continued inpatient stay Substantial Risk for: inability to function Statement Statement: I have reviewed the history and physical and performed a pertinent examination on my patient. No changes have occurred unless specified. If the History and Physical was not performed prior to admission, the Hospitalist's service will be consulted for completing the admission physical. Time Spent With Patient Time: Total time managing care of this patient today ____ minutes.
[2022-12-03] MEDS: LORazepam 0.5 MG TABLET PO ×2 (11:38→18:40)
[2022-12-03] MEDS: QUEtiapine Fumarate 25 MG TABLET PO ×2 (11:38→18:40)
[2022-12-03] MEDS: Omeprazole 40 MG CAPSULE.DR PO (11:38)
[2022-12-03 12:39] LABS: C Reactive Protein < 0.04 mg/dL (< or = 0.50)
--- NOTE | 2022-12-03 14:40 | PC.ADMIT ---
Anatoly was admitted to unit from [facility] on a CV on 12/02/22 with a diagnosis of Bipolar Related Disorder. Precipitants include stressors related to recent marriage in July of 2022 , and very recent discovery that his is now . Patient reports that in addition, he has been feeling as if his medications have not been helpful, and that the Seroquel that he has been prescribed made him stop 'feeling.'. Patient has been trying to adjust the dosage himself and feels minimally supported by the psychiatrist he sees. In addition, he has missed appointments with his therapist. Patient self presented to the ED reporting SI, no concrete plan. He denies HI, denies AH, reports VH of shadows, and auras. He does have one previous hx of attempted suicide in the past using chloroform he made himself using a recipe he found online. Patient reports a past hx binge drinking approximately twice a week (10 drinks or more) but stopped that, as well as marijuana use, once he learned that his was expecting. He reports heavy use of drugs when he was young, in his twenties, but not since. Patient denies any medical history except for acute pancreatitis, last summer. He denies SI at this time, denies HI, denies AH/VH, and states he can come to staff if he feels unsafe. At the time of assessment, patient had just awoken, was dressed in a hospital princess. Speech was clear, thought content organized. He was alert, oriented x3, and denied any medical concerns.
[2022-12-03 20:10] VITALS: BP 108/65; PULSE 89; RESP 18; TEMP 36.6; O2SAT 95
[2022-12-03] MEDS: Prazosin HCL 1 MG CAPSULE 2 MG PO (20:13)
[2022-12-03] MEDS: traZODone HCL 50 MG TABLET PO (20:13)
[2022-12-03] MEDS: QUEtiapine Fumarate 100 MG TABLET PO (20:13)
--- NOTE | 2022-12-04 | EEG_ITS ---
FINDINGS: The waking background activity consists of low voltage fast frequency seen diffusely intermixed with low to moderate voltage 8 to 9 hertz posterior alpha frequency. Photic stimulation is without activation. Hyperventilation was omitted. No focal, lateralizing, or paroxysmal discharges seen. IMPRESSION: This waking EEG is within normal limits. MD PRINCESS Mcknight/SWATI / [id number]
[2022-12-04 09:45] VITALS: BP 121/70; PULSE 103; RESP 18; TEMP 36.7; O2SAT 97
[2022-12-04] MEDS: Omeprazole 40 MG CAPSULE.DR PO (09:51)
[2022-12-04] MEDS: QUEtiapine Fumarate 25 MG TABLET PO (11:57)
[2022-12-04] MEDS: LORazepam 0.5 MG TABLET PO (11:57)
--- NOTE | 2022-12-04 13:19 | HO.PSYCHPN ---
Subjective Subjective Date of Service: 12/04/22 Reason For Visit: Alondra Subjective Notes: Conditional Voluntary Interim History: Pt reports feeling tired. He continues to report fair sleep, feeling foggy, depressed, passive SI but no plan or intent. No VH/AH. Pt up for meals, mostly in his room. we discussed starting latuda today with dinner. Review of Systems Review of Systems Yes all other systems are reviewed and are negative Constitutional: Reports no additional constitutional complaints, Denies body ache(s), Denies chills, Denies fever(s), Denies headache(s) and Denies weakness Eyes: Reports no additional eye complaints and Denies change in vision Reports system reviewed and no additional complaints, except as documented, Denies dizziness, Denies headache(s), Denies nasal congestion, Denies nasal discharge and Denies neck pain Cardiovascular: Reports no additional cardiovascular complaints, Denies chest pain, Denies leg edema and Denies dyspnea Respiratory: Reports no additional respiratory complaints, Denies cough and Denies dyspnea Gastrointestinal: Reports no additional gastrointestinal complaints, Denies abdominal pain, Denies diarrhea, Denies nausea and Denies vomiting Genitourinary: Denies urinary incontinence Musculoskeletal: Reports no additional musculoskeletal complaints, Denies back pain, Denies arthralgias, Denies joint swelling, Denies neck pain, Denies numbness and Denies tingling Skin/Breast: Reports system reviewed and no additional complaints, except as docu and Denies rash Reports system reviewed and no additional complaints, except as documented, Denies Abnormal speech present, Denies dizziness, Denies headache(s), Denies numbness, Denies tingling and Denies weakness Psychiatric: Reports anxiety, Reports depression and Reports suicidal ideation Mental Status Exam Mental Status Exam Narrative: Appearance: wearing hospital gown, in NAD Behavior: cooperative Psychomotor: no agitation or retardation noted Speech: clear, normal rate/rhythm/volume, spontaneous TP: linear TC: no signs of psychosis or delusions, feeling unable to function as he was Mood: depressed Affect: blunted SI: passive, no plan or intent HI: none VH/AH: none Delusions: none Insight/judgment: fair x 2. Memory/cog: alert, oriented x 3. Diagnostics Vital Signs (24Hr): Vital Signs - 24 hr 12/04/22 20:45 12/05/22 06:00 Temperature 97.5 F 97.6 F Pulse Rate 81 90 Respiratory Rate 18 16 Blood Pressure 122/75 117/61 Pulse Oximetry 95 95 Oxygen Delivery Method Room Air Room Air BMI result Body Mass Index 23.6 Labs 12/02/22 12:51 12/03/22 06:47 Medications Medications Current Medications Acetaminophen (Acetaminophen 325 Mg Tablet) 650 mg PO Q6H PRN PRN Reason: Headache/Pain Mild Scale (1-3) Al Hydroxide/Mg Hydroxide (Magnesium Hydrox/Alum Hydrox 30 Ml Oral.Susp) 30 ml PO Q6H PRN PRN Reason: Heartburn/Nausea Hydroxyzine HCl (Hydroxyzine Hcl 25 Mg Tablet) 25 mg PO Q6H PRN PRN Reason: Anxiety Last Admin: 12/05/22 13:53 Dose: 25 mg Lorazepam (Lorazepam 1 Mg Tablet) 1 mg PO Q6H PRN PRN Reason: Anxiety Last Admin: 12/05/22 13:53 Dose: 1 mg Lurasidone HCl (Lurasidone Hcl 20 Mg Tablet) 20 mg PO DAILY@1700 [facility] Last Admin: 12/04/22 18:10 Dose: 20 mg Magnesium Hydroxide (Milk Of Magnesia 30 Ml Oral.Susp) 30 ml PO DAILY PRN PRN Reason: Constipation Omeprazole (Omeprazole 40 Mg Capsule.Dr) 40 mg PO DAILY@0630 [facility] Last Admin: 12/05/22 09:36 Dose: 40 mg Pharmacy Consult (Consult Rx Perform Med Rec) 1 each MISCELLANE ONCE PRN PRN Reason: Consult order Prazosin HCl (Prazosin Hcl 1 Mg Capsule) 2 mg PO BEDTIME [facility]; Protocol Last Admin: 12/04/22 20:48 Dose: 2 mg Quetiapine Fumarate (Quetiapine Fumarate 100 Mg Tablet) 100 mg PO BEDTIME [facility] Last Admin: 12/04/22 20:48 Dose: 100 mg Quetiapine Fumarate (Quetiapine Fumarate 25 Mg Tablet) 25 mg PO BID PRN PRN Reason: agitation Last Admin: 12/04/22 11:57 Dose: 25 mg Trazodone HCl (Trazodone Hcl 50 Mg Tablet) 50 mg PO BEDTIME PRN PRN Reason: Insomnia Last Admin: 12/04/22 20:48 Dose: 50 mg Allergies Allergies Allergy/AdvReac Type Severity Reaction Status Date / Time aripiprazole [From [facility]] AdvReac Unknown FELT HE Verified 07/14/22 17:15 WAS CRAWLING OUT OF HIS SKIN Assessment & Plan Assessment & Plan (1) Bipolar disorder with depression: Status: Acute Code(s): F31.9 - Bipolar disorder, unspecified Plan Mr. Mazariegos is a 32 year-old male with hx of Bipolar Disorder, alcohol and cocaine use in remission who self presented with somewhat unusual symptoms for his typical presentation when depressed or manic. Pt reports having cognitive fogginess and cognitive slowness, anxious mood, visual changes (does not appear to be hallucinations- seeing some white light briefly around some people), headaches. He does report depressed mood and feeling overwhelmed as he is expecting first child. He reports not able to function at work as he used to. We discussed risks, benefits and alternative treatment. We discussed r/o neurological etiology for these unusual presentation despite hx of Bipolar including seizures, mass effect. PLAN 1. Admit to M3, CV, 15 minutes checks for safety 2. May consider switch to latuda for bipolar depression 3. Obtain collateral information 4. Aftercare planning. 12/04 start latuda 20mg po daily with dinner. Reason for contiued inpatient stay Substantial Risk for: harm to self Time Spent With Patient Time: Total time managing care of this patient today ____ minutes.
[2022-12-04] MEDS: Lurasidone HCl 20 MG TABLET PO (18:10)
[2022-12-04] MEDS: LORazepam 1 MG TABLET PO (18:58)
[2022-12-04 20:45] VITALS: BP 122/75; PULSE 81; RESP 18; TEMP 36.4; O2SAT 95
[2022-12-04] MEDS: traZODone HCL 50 MG TABLET PO (20:48)
[2022-12-04] MEDS: QUEtiapine Fumarate 100 MG TABLET PO (20:48)
[2022-12-04] MEDS: Prazosin HCL 1 MG CAPSULE 2 MG PO (20:48)
[2022-12-05 06:00] VITALS: BP 117/61; PULSE 90; RESP 16; TEMP 36.4; O2SAT 95
[2022-12-05] MEDS: Omeprazole 40 MG CAPSULE.DR PO (09:36)
--- NOTE | 2022-12-05 13:22 | HO.PSYCHPN ---
Subjective Subjective Date of Service: 12/05/22 Reason For Visit: Alondra Subjective Notes: Conditional Voluntary Interim History: Pt reports feeling sedated this morning which he thinks this time may be more the seroquel. He asks for decrease dose of seroquel to 50mg po qhs as we continue to adjust dose of latuda for bipolar depression. No SI/HI. More visible, still reports feeling very depressed. Diagnostics Vital Signs (24Hr): Vital Signs - 24 hr 12/04/22 20:45 12/05/22 06:00 Temperature 97.5 F 97.6 F Pulse Rate 81 90 Respiratory Rate 18 16 Blood Pressure 122/75 117/61 Pulse Oximetry 95 95 Oxygen Delivery Method Room Air Room Air BMI result Body Mass Index 23.6 Labs 12/02/22 12:51 12/03/22 06:47 Medications Medications Current Medications Acetaminophen (Acetaminophen 325 Mg Tablet) 650 mg PO Q6H PRN PRN Reason: Headache/Pain Mild Scale (1-3) Al Hydroxide/Mg Hydroxide (Magnesium Hydrox/Alum Hydrox 30 Ml Oral.Susp) 30 ml PO Q6H PRN PRN Reason: Heartburn/Nausea Hydroxyzine HCl (Hydroxyzine Hcl 25 Mg Tablet) 25 mg PO Q6H PRN PRN Reason: Anxiety Last Admin: 12/05/22 13:53 Dose: 25 mg Lorazepam (Lorazepam 1 Mg Tablet) 1 mg PO Q6H PRN PRN Reason: Anxiety Last Admin: 12/05/22 13:53 Dose: 1 mg Lurasidone HCl (Lurasidone Hcl 20 Mg Tablet) 20 mg PO DAILY@1700 [facility] Last Admin: 12/04/22 18:10 Dose: 20 mg Magnesium Hydroxide (Milk Of Magnesia 30 Ml Oral.Susp) 30 ml PO DAILY PRN PRN Reason: Constipation Omeprazole (Omeprazole 40 Mg Capsule.Dr) 40 mg PO DAILY@0630 [facility] Last Admin: 12/05/22 09:36 Dose: 40 mg Pharmacy Consult (Consult Rx Perform Med Rec) 1 each MISCELLANE ONCE PRN PRN Reason: Consult order Prazosin HCl (Prazosin Hcl 1 Mg Capsule) 2 mg PO BEDTIME [facility]; Protocol Last Admin: 12/04/22 20:48 Dose: 2 mg Quetiapine Fumarate (Quetiapine Fumarate 100 Mg Tablet) 100 mg PO BEDTIME [facility] Last Admin: 12/04/22 20:48 Dose: 100 mg Quetiapine Fumarate (Quetiapine Fumarate 25 Mg Tablet) 25 mg PO BID PRN PRN Reason: agitation Last Admin: 12/04/22 11:57 Dose: 25 mg Trazodone HCl (Trazodone Hcl 50 Mg Tablet) 50 mg PO BEDTIME PRN PRN Reason: Insomnia Last Admin: 12/04/22 20:48 Dose: 50 mg Allergies Allergies Allergy/AdvReac Type Severity Reaction Status Date / Time aripiprazole [From [facility]] AdvReac Unknown FELT HE Verified 07/14/22 17:15 WAS CRAWLING OUT OF HIS SKIN Assessment & Plan Assessment & Plan (1) Bipolar disorder with depression: Status: Acute Code(s): F31.9 - Bipolar disorder, unspecified Plan Mr. Mazariegos is a 32 year-old male with hx of Bipolar Disorder, alcohol and cocaine use in remission who self presented with somewhat unusual symptoms for his typical presentation when depressed or manic. Pt reports having cognitive fogginess and cognitive slowness, anxious mood, visual changes (does not appear to be hallucinations- seeing some white light briefly around some people), headaches. He does report depressed mood and feeling overwhelmed as he is expecting first child. He reports not able to function at work as he used to. We discussed risks, benefits and alternative treatment. We discussed r/o neurological etiology for these unusual presentation despite hx of Bipolar including seizures, mass effect. PLAN 1. Admit to M3, CV, 15 minutes checks for safety 2. May consider switch to latuda for bipolar depression 3. Obtain collateral information 4. Aftercare planning. 12/04 start latuda 20mg po daily with dinner. 12/05 decrease dose of seroquel to 50mg po qhs continue latuda 20mg po with dinner but will titrate. Reason for contiued inpatient stay Substantial Risk for: inability to function Time Spent With Patient Time: Total time managing care of this patient today ____ minutes.
[2022-12-05] MEDS: hydrOXYzine HCL 25 MG TABLET PO (13:53)
[2022-12-05] MEDS: LORazepam 1 MG TABLET PO (13:53)
--- NOTE | 2022-12-05 15:10 | PC.NURSE ---
Pt to MRI
[2022-12-05] MEDS: Lurasidone HCl 20 MG TABLET PO (17:55)
[2022-12-05] MEDS: Prazosin HCL 1 MG CAPSULE 2 MG PO (20:17)
[2022-12-05] MEDS: QUEtiapine Fumarate 50 MG TABLET PO (20:17)
[2022-12-05 20:20] VITALS: BP 124/82; PULSE 87; TEMP 36.6; O2SAT 97
[2022-12-06] MEDS: LORazepam 1 MG TABLET PO ×2 (01:11→12:48)
[2022-12-06 08:30] VITALS: BP 119/79; PULSE 103; RESP 18; TEMP 37; O2SAT 97
[2022-12-06] MEDS: Omeprazole 40 MG CAPSULE.DR PO (09:39)
[2022-12-06] MEDS: QUEtiapine Fumarate 25 MG TABLET PO (12:47)
--- NOTE | 2022-12-06 13:03 | P.PNPSI_ITS ---
Subjective Subjective Date of Service: 12/06/22 Reason For Visit: Alondra Subjective Notes: Conditional Voluntary Interim History: Pt reports feeling more depressed in the morning, in evening starts to feel more like myself. He reports he slept not so well last night as he woke up 2am and took dose of ativan. He denies SI/HI. No VH/AH. Medication Compliance: Yes Review of Systems Review of Systems Yes all other systems are reviewed and are negative Constitutional: Reports no additional constitutional complaints, Denies body ache(s), Denies chills, Denies fever(s), Denies headache(s) and Denies weakness Eyes: Reports no additional eye complaints and Denies change in vision Reports system reviewed and no additional complaints, except as documented, Denies dizziness, Denies headache(s), Denies nasal congestion, Denies nasal discharge and Denies neck pain Cardiovascular: Reports no additional cardiovascular complaints, Denies chest pain, Denies leg edema and Denies dyspnea Respiratory: Reports no additional respiratory complaints, Denies cough and Denies dyspnea Gastrointestinal: Reports no additional gastrointestinal complaints, Denies abdominal pain, Denies diarrhea, Denies nausea and Denies vomiting Genitourinary: Denies urinary incontinence Musculoskeletal: Reports no additional musculoskeletal complaints, Denies back pain, Denies arthralgias, Denies joint swelling, Denies neck pain, Denies numbness and Denies tingling Skin/Breast: Reports system reviewed and no additional complaints, except as docu and Denies rash Reports system reviewed and no additional complaints, except as documented, Denies Abnormal speech present, Denies dizziness, Denies headache(s), Denies numbness, Denies tingling and Denies weakness Psychiatric: Reports anxiety, Reports depression and Reports suicidal ideation Mental Status Exam Mental Status Exam Narrative: Appearance: wearing hospital gown, in NAD Behavior: cooperative Psychomotor: no agitation or retardation noted Speech: clear, normal rate/rhythm/volume, spontaneous TP: linear TC: no signs of psychosis or delusions, feeling unable to function as he was Mood: depressed Affect: blunted SI: passive, no plan or intent HI: none VH/AH: none Delusions: none Insight/judgment: fair x 2. Memory/cog: alert, oriented x 3. Diagnostics Vital Signs (24Hr): Vital Signs - 24 hr 12/05/22 20:20 12/06/22 08:30 Temperature 97.9 F 98.6 F Pulse Rate 87 103 H Respiratory Rate 18 Blood Pressure 124/82 119/79 Pulse Oximetry 97 97 Oxygen Delivery Method Room Air Room Air BMI result Body Mass Index 23.6 Labs 12/02/22 12:51 12/03/22 06:47 Imaging Radiology Impressions: ITS Impressions Brain MRI 12/05/22 15:55 IMPRESSION: - Unremarkable noncontrast MRI of the brain. - There is a retention cyst within the right maxillary sinus and there is mild mucosal thickening within the left maxillary sinus and throughout the ethmoid air cells bilaterally. Medications Medications Current Medications Acetaminophen (Acetaminophen 325 Mg Tablet) 650 mg PO Q6H PRN PRN Reason: Headache/Pain Mild Scale (1-3) Al Hydroxide/Mg Hydroxide (Magnesium Hydrox/Alum Hydrox 30 Ml Oral.Susp) 30 ml PO Q6H PRN PRN Reason: Heartburn/Nausea Hydroxyzine HCl (Hydroxyzine Hcl 25 Mg Tablet) 25 mg PO Q6H PRN PRN Reason: Anxiety Last Admin: 12/05/22 13:53 Dose: 25 mg Lorazepam (Lorazepam 1 Mg Tablet) 1 mg PO Q6H PRN PRN Reason: Anxiety Last Admin: 12/06/22 12:48 Dose: 1 mg Lurasidone HCl (Lurasidone Hcl 20 Mg Tablet) 20 mg PO DAILY@1700 [facility] Last Admin: 12/05/22 17:55 Dose: 20 mg Magnesium Hydroxide (Milk Of Magnesia 30 Ml Oral.Susp) 30 ml PO DAILY PRN PRN Reason: Constipation Omeprazole (Omeprazole 40 Mg Capsule.Dr) 40 mg PO DAILY@0630 [facility] Last Admin: 12/06/22 09:39 Dose: 40 mg Pharmacy Consult (Consult Rx Perform Med Rec) 1 each MISCELLANE ONCE PRN PRN Reason: Consult order Prazosin HCl (Prazosin Hcl 1 Mg Capsule) 2 mg PO BEDTIME [facility]; Protocol Last Admin: 12/05/22 20:17 Dose: 2 mg Quetiapine Fumarate (Quetiapine Fumarate 25 Mg Tablet) 25 mg PO BID PRN PRN Reason: agitation Last Admin: 12/06/22 12:47 Dose: 25 mg Quetiapine Fumarate (Quetiapine Fumarate 50 Mg Tablet) 50 mg PO BEDTIME [facility] Last Admin: 12/05/22 20:17 Dose: 50 mg Trazodone HCl (Trazodone Hcl 50 Mg Tablet) 50 mg PO BEDTIME PRN PRN Reason: Insomnia Last Admin: 12/04/22 20:48 Dose: 50 mg Allergies Allergies Allergy/AdvReac Type Severity Reaction Status Date / Time [facility] AdvReac Unknown FELT HE Verified 07/14/22 17:15 WAS CRAWLING OUT OF HIS SKIN Assessment & Plan Assessment & Plan (1) Bipolar disorder with depression: Status: Acute Code(s): F31.9 - Bipolar disorder, unspecified Plan Mr. Mazariegos is a 32 year-old male with hx of Bipolar Disorder, alcohol and cocaine use in remission who self presented with somewhat unusual symptoms for his typical presentation when depressed or manic. Pt reports having cognitive fogginess and cognitive slowness, anxious mood, visual changes (does not appear to be hallucinations- seeing some white light briefly around some people), headaches. He does report depressed mood and feeling overwhelmed as he is expecting first child. He reports not able to function at work as he used to. We discussed risks, benefits and alternative treatment. We discussed r/o neurological etiology for these unusual presentation despite hx of Bipolar including seizures, mass effect. PLAN 1. Admit to M3, CV, 15 minutes checks for safety 2. May consider switch to latuda for bipolar depression 3. Obtain collateral information 4. Aftercare planning. 12/04 start latuda 20mg po daily with dinner. 12/05 decrease dose of seroquel to 50mg po qhs continue latuda 20mg po with dinner but will titrate. 12/06 increase latuda to 40mg po dinner. Reason for contiued inpatient stay Substantial Risk for: inability to function Time Spent With Patient Time: Total time managing care of this patient today ____ minutes.
[2022-12-06] MEDS: Lurasidone HCl 40 MG TABLET PO (17:33)
[2022-12-06 20:00] VITALS: BP 125/75; PULSE 90; RESP 18; TEMP 36.4; O2SAT 97
[2022-12-06] MEDS: traZODone HCL 50 MG TABLET PO (20:08)
[2022-12-06] MEDS: Prazosin HCL 1 MG CAPSULE 2 MG PO (20:08)
[2022-12-06] MEDS: QUEtiapine Fumarate 50 MG TABLET PO (20:09)
[2022-12-07 08:00] VITALS: BP 127/73; PULSE 87; RESP 18; TEMP 36.6; O2SAT 96
[2022-12-07] MEDS: Acetaminophen 325 MG TABLET 650 MG PO (09:01)
[2022-12-07] MEDS: Omeprazole 40 MG CAPSULE.DR PO (09:02)
--- NOTE | 2022-12-07 12:32 | HO.PSYCHPN ---
Subjective Subjective Date of Service: 12/07/22 Reason For Visit: Alondra Subjective Notes: Conditional Voluntary Interim History: Pt reports feeling less depressed, more energy, some nausea with latuda but tolerable. He declined pepcid for nausea. No SI/HI. He reports sleeping well and looks forward to be discharged soon. No behavioral concerns. Medication Compliance: Yes Review of Systems Review of Systems Yes all other systems are reviewed and are negative Constitutional: Reports no additional constitutional complaints, Denies body ache(s), Denies chills, Denies fever(s), Denies headache(s) and Denies weakness Eyes: Reports no additional eye complaints and Denies change in vision Reports system reviewed and no additional complaints, except as documented, Denies dizziness, Denies headache(s), Denies nasal congestion, Denies nasal discharge and Denies neck pain Cardiovascular: Reports no additional cardiovascular complaints, Denies chest pain, Denies leg edema and Denies dyspnea Respiratory: Reports no additional respiratory complaints, Denies cough and Denies dyspnea Gastrointestinal: Reports no additional gastrointestinal complaints, Denies abdominal pain, Denies diarrhea, Denies nausea and Denies vomiting Genitourinary: Denies urinary incontinence Musculoskeletal: Reports no additional musculoskeletal complaints, Denies back pain, Denies arthralgias, Denies joint swelling, Denies neck pain, Denies numbness and Denies tingling Skin/Breast: Reports system reviewed and no additional complaints, except as docu and Denies rash Reports system reviewed and no additional complaints, except as documented, Denies Abnormal speech present, Denies dizziness, Denies headache(s), Denies numbness, Denies tingling and Denies weakness Psychiatric: Reports anxiety, Reports depression and Reports suicidal ideation Mental Status Exam Mental Status Exam Narrative: Appearance: wearing hospital gown, in NAD Behavior: cooperative Psychomotor: no agitation or retardation noted Speech: clear, normal rate/rhythm/volume, spontaneous TP: linear TC: no signs of psychosis or delusions, feeling unable to function as he was Mood: depressed Affect: blunted SI: passive, no plan or intent HI: none VH/AH: none Delusions: none Insight/judgment: fair x 2. Memory/cog: alert, oriented x 3. Diagnostics Vital Signs (24Hr): Vital Signs - 24 hr 12/07/22 20:32 Temperature 97.8 F Pulse Rate 88 Blood Pressure 117/63 Pulse Oximetry 98 Oxygen Delivery Method Room Air BMI result Body Mass Index 23.6 Labs 12/02/22 12:51 12/03/22 06:47 Imaging Radiology Impressions: ITS Impressions Brain MRI 12/05/22 15:55 IMPRESSION: - Unremarkable noncontrast MRI of the brain. - There is a retention cyst within the right maxillary sinus and there is mild mucosal thickening within the left maxillary sinus and throughout the ethmoid air cells bilaterally. Medications Medications Current Medications Acetaminophen (Acetaminophen 325 Mg Tablet) 650 mg PO Q6H PRN PRN Reason: Headache/Pain Mild Scale (1-3) Last Admin: 12/07/22 09:01 Dose: 650 mg Al Hydroxide/Mg Hydroxide (Magnesium Hydrox/Alum Hydrox 30 Ml Oral.Susp) 30 ml PO Q6H PRN PRN Reason: Heartburn/Nausea Hydroxyzine HCl (Hydroxyzine Hcl 25 Mg Tablet) 25 mg PO Q6H PRN PRN Reason: Anxiety Last Admin: 12/07/22 12:40 Dose: 25 mg Lorazepam (Lorazepam 1 Mg Tablet) 1 mg PO Q6H PRN PRN Reason: Anxiety Last Admin: 12/07/22 17:32 Dose: 1 mg Lurasidone HCl (Lurasidone Hcl 40 Mg Tablet) 40 mg PO DAILY@1700 [facility] Last Admin: 12/07/22 17:32 Dose: 40 mg Magnesium Hydroxide (Milk Of Magnesia 30 Ml Oral.Susp) 30 ml PO DAILY PRN PRN Reason: Constipation Omeprazole (Omeprazole 40 Mg Capsule.Dr) 40 mg PO DAILY@0630 [facility] Last Admin: 12/07/22 09:02 Dose: 40 mg Pharmacy Consult (Consult Rx Perform Med Rec) 1 each MISCELLANE ONCE PRN PRN Reason: Consult order Prazosin HCl (Prazosin Hcl 1 Mg Capsule) 2 mg PO BEDTIME [facility]; Protocol Last Admin: 12/07/22 20:30 Dose: 2 mg Quetiapine Fumarate (Quetiapine Fumarate 25 Mg Tablet) 25 mg PO BID PRN PRN Reason: agitation Last Admin: 12/07/22 12:40 Dose: 25 mg Quetiapine Fumarate (Quetiapine Fumarate 50 Mg Tablet) 50 mg PO BEDTIME [facility] Last Admin: 12/07/22 20:30 Dose: 50 mg Trazodone HCl (Trazodone Hcl 50 Mg Tablet) 50 mg PO BEDTIME PRN PRN Reason: Insomnia Last Admin: 12/07/22 20:30 Dose: 50 mg Allergies Allergies Allergy/AdvReac Type Severity Reaction Status Date / Time aripiprazole [From [facility]] AdvReac Unknown FELT HE Verified 07/14/22 17:15 WAS CRAWLING OUT OF HIS SKIN Assessment & Plan Assessment & Plan (1) Bipolar disorder with depression: Status: Acute Code(s): F31.9 - Bipolar disorder, unspecified Plan Mr. Mazariegos is a 32 year-old male with hx of Bipolar Disorder, alcohol and cocaine use in remission who self presented with somewhat unusual symptoms for his typical presentation when depressed or manic. Pt reports having cognitive fogginess and cognitive slowness, anxious mood, visual changes (does not appear to be hallucinations- seeing some white light briefly around some people), headaches. He does report depressed mood and feeling overwhelmed as he is expecting first child. He reports not able to function at work as he used to. We discussed risks, benefits and alternative treatment. We discussed r/o neurological etiology for these unusual presentation despite hx of Bipolar including seizures, mass effect. PLAN 1. Admit to M3, CV, 15 minutes checks for safety 2. May consider switch to latuda for bipolar depression 3. Obtain collateral information 4. Aftercare planning. 12/04 start latuda 20mg po daily with dinner. 12/05 decrease dose of seroquel to 50mg po qhs continue latuda 20mg po with dinner but will titrate. 12/06 increase latuda to 40mg po dinner. 12/07 continue tx. Reason for contiued inpatient stay Substantial Risk for: stable for discharge Time Spent With Patient Time: Total time managing care of this patient today ____ minutes.
[2022-12-07] MEDS: hydrOXYzine HCL 25 MG TABLET PO (12:40)
[2022-12-07] MEDS: QUEtiapine Fumarate 25 MG TABLET PO (12:40)
--- NOTE | 2022-12-07 12:42 | PC.NURSE ---
Pt requested PRN Atarax and Seroquel he is rating his anxiety at 5/10.
[2022-12-07] MEDS: LORazepam 1 MG TABLET PO (17:32)
[2022-12-07] MEDS: Lurasidone HCl 40 MG TABLET PO (17:32)
[2022-12-07] MEDS: QUEtiapine Fumarate 50 MG TABLET PO (20:30)
[2022-12-07] MEDS: Prazosin HCL 1 MG CAPSULE 2 MG PO (20:30)
[2022-12-07] MEDS: traZODone HCL 50 MG TABLET PO (20:30)
[2022-12-07 20:32] VITALS: BP 117/63; PULSE 88; TEMP 36.6; O2SAT 98
--- NOTE | 2022-12-08 | ECG_ITS ---
Test Reason : tachycardia Blood Pressure : / mmHG Vent. Rate : 081 BPM Atrial Rate : 081 BPM P-R Int : 136 ms QRS Dur : 108 ms QT Int : 370 ms P-R-T Axes : 020 068 037 degrees QTc Int : 429 ms Normal sinus rhythm Incomplete right bundle branch block Borderline ECG When compared with ECG of 14-JUL-2022 22:16, No significant change was found Referred By: Prerna Verduzco Electronically Signed By:SHEMAR RIVAS
[2022-12-08] MEDS: Omeprazole 40 MG CAPSULE.DR PO (09:04)
[2022-12-08 09:26] VITALS: BP 112/74; PULSE 140; RESP 18; TEMP 36.8; O2SAT 95
[2022-12-08 09:30] VITALS: PULSE 142
[2022-12-08] MEDS: QUEtiapine Fumarate 25 MG TABLET PO ×2 (10:45→17:40)
[2022-12-08] MEDS: hydrOXYzine HCL 25 MG TABLET PO ×2 (10:45→17:40)
[2022-12-08 10:50] VITALS: PULSE 128
[2022-12-08 11:01] VITALS: BMI 24.8
--- NOTE | 2022-12-08 11:07 | HO.PSYCHPN ---
Subjective Subjective Date of Service: 12/08/22 Reason For Visit: Alondra Subjective Notes: Conditional Voluntary Interim History: Pt reports sleeping better, less foggy, less depressed. No SI/HI. Tachycardia this morning Hr 120-140's. pending ECG and orth VS. Pt denies chest pain or palpitations. Slight dizziness but no syncopal episodes. He reports overall feeling better and ready for d/c tomorrow. will try only with seroquel prn. and schedule latuda for bipolar depression. Medication Compliance: Yes Side effects from medications: No Review of Systems Review of Systems Yes all other systems are reviewed and are negative Constitutional: Reports no additional constitutional complaints, Denies body ache(s), Denies chills, Denies fever(s), Denies headache(s) and Denies weakness Eyes: Reports no additional eye complaints and Denies change in vision Reports system reviewed and no additional complaints, except as documented, Denies dizziness, Denies headache(s), Denies nasal congestion, Denies nasal discharge and Denies neck pain Cardiovascular: Reports no additional cardiovascular complaints, Denies chest pain, Denies leg edema and Denies dyspnea Respiratory: Reports no additional respiratory complaints, Denies cough and Denies dyspnea Gastrointestinal: Reports no additional gastrointestinal complaints, Denies abdominal pain, Denies diarrhea, Denies nausea and Denies vomiting Genitourinary: Denies urinary incontinence Musculoskeletal: Reports no additional musculoskeletal complaints, Denies back pain, Denies arthralgias, Denies joint swelling, Denies neck pain, Denies numbness and Denies tingling Skin/Breast: Reports system reviewed and no additional complaints, except as docu and Denies rash Reports system reviewed and no additional complaints, except as documented, Denies Abnormal speech present, Denies dizziness, Denies headache(s), Denies numbness, Denies tingling and Denies weakness Psychiatric: Reports anxiety, Reports depression and Reports suicidal ideation Mental Status Exam Mental Status Exam Narrative: Appearance: wearing hospital gown, in NAD Behavior: cooperative Psychomotor: no agitation or retardation noted Speech: clear, normal rate/rhythm/volume, spontaneous TP: linear TC: no signs of psychosis or delusions, feeling unable to function as he was Mood: depressed Affect: blunted SI: passive, no plan or intent HI: none VH/AH: none Delusions: none Insight/judgment: fair x 2. Memory/cog: alert, oriented x 3. Diagnostics Vital Signs (24Hr): Vital Signs - 24 hr 12/07/22 20:32 12/08/22 09:26 12/08/22 10:50 Temperature 97.8 F 98.3 F Pulse Rate 88 140 H 128 H Respiratory Rate 18 Blood Pressure 117/63 112/74 Pulse Oximetry 98 95 Oxygen Delivery Method Room Air Room Air 12/08/22 09:30 Temperature Pulse Rate 142 H Respiratory Rate Blood Pressure Pulse Oximetry Oxygen Delivery Method BMI result Body Mass Index 24.8 Labs 12/02/22 12:51 12/03/22 06:47 Imaging Radiology Impressions: ITS Impressions Brain MRI 12/05/22 15:55 IMPRESSION: - Unremarkable noncontrast MRI of the brain. - There is a retention cyst within the right maxillary sinus and there is mild mucosal thickening within the left maxillary sinus and throughout the ethmoid air cells bilaterally. Medications Medications Current Medications Acetaminophen (Acetaminophen 325 Mg Tablet) 650 mg PO Q6H PRN PRN Reason: Headache/Pain Mild Scale (1-3) Last Admin: 12/07/22 09:01 Dose: 650 mg Al Hydroxide/Mg Hydroxide (Magnesium Hydrox/Alum Hydrox 30 Ml Oral.Susp) 30 ml PO Q6H PRN PRN Reason: Heartburn/Nausea Hydroxyzine HCl (Hydroxyzine Hcl 25 Mg Tablet) 25 mg PO Q6H PRN PRN Reason: Anxiety Last Admin: 12/08/22 10:45 Dose: 25 mg Lorazepam (Lorazepam 1 Mg Tablet) 1 mg PO Q6H PRN PRN Reason: Anxiety Last Admin: 12/07/22 17:32 Dose: 1 mg Lurasidone HCl (Lurasidone Hcl 40 Mg Tablet) 40 mg PO DAILY@1700 [facility] Last Admin: 12/07/22 17:32 Dose: 40 mg Magnesium Hydroxide (Milk Of Magnesia 30 Ml Oral.Susp) 30 ml PO DAILY PRN PRN Reason: Constipation Omeprazole (Omeprazole 40 Mg Capsule.Dr) 40 mg PO DAILY@0630 [facility] Last Admin: 12/08/22 09:04 Dose: 40 mg Pharmacy Consult (Consult Rx Perform Med Rec) 1 each MISCELLANE ONCE PRN PRN Reason: Consult order Prazosin HCl (Prazosin Hcl 1 Mg Capsule) 2 mg PO BEDTIME [facility]; Protocol Last Admin: 12/07/22 20:30 Dose: 2 mg Quetiapine Fumarate (Quetiapine Fumarate 25 Mg Tablet) 25 mg PO BID PRN PRN Reason: agitation Last Admin: 12/08/22 10:45 Dose: 25 mg Quetiapine Fumarate (Quetiapine Fumarate 50 Mg Tablet) 50 mg PO BEDTIME [facility] Last Admin: 12/07/22 20:30 Dose: 50 mg Trazodone HCl (Trazodone Hcl 50 Mg Tablet) 50 mg PO BEDTIME PRN PRN Reason: Insomnia Last Admin: 12/07/22 20:30 Dose: 50 mg Allergies Allergies Allergy/AdvReac Type Severity Reaction Status Date / Time aripiprazole [From [facility]] AdvReac Unknown FELT HE Verified 07/14/22 17:15 WAS CRAWLING OUT OF HIS SKIN Assessment & Plan Assessment & Plan (1) Bipolar disorder with depression: Status: Acute Code(s): F31.9 - Bipolar disorder, unspecified Plan Mr. Mazariegos is a 32 year-old male with hx of Bipolar Disorder, alcohol and cocaine use in remission who self presented with somewhat unusual symptoms for his typical presentation when depressed or manic. Pt reports having cognitive fogginess and cognitive slowness, anxious mood, visual changes (does not appear to be hallucinations- seeing some white light briefly around some people), headaches. He does report depressed mood and feeling overwhelmed as he is expecting first child. He reports not able to function at work as he used to. We discussed risks, benefits and alternative treatment. We discussed r/o neurological etiology for these unusual presentation despite hx of Bipolar including seizures, mass effect. PLAN 1. Admit to M3, CV, 15 minutes checks for safety 2. May consider switch to latuda for bipolar depression 3. Obtain collateral information 4. Aftercare planning. 12/04 start latuda 20mg po daily with dinner. 12/05 decrease dose of seroquel to 50mg po qhs continue latuda 20mg po with dinner but will titrate. 12/06 increase latuda to 40mg po dinner. 12/07 continue tx. 12/08 continue latuda, ecg for tachycardia, pending ortho VS, prn seroquel d/c schedule seroquel due to sedation. Reason for contiued inpatient stay Substantial Risk for: stable for discharge Time Spent With Patient Time: Total time managing care of this patient today ____ minutes.
[2022-12-08 11:42] VITALS: BP 120/65; PULSE 90
[2022-12-08 11:43] VITALS: BP 106/61; BP 121/68; PULSE 100; PULSE 122
[2022-12-08] MEDS: Lurasidone HCl 40 MG TABLET PO (18:45)
[2022-12-08] MEDS: traZODone HCL 50 MG TABLET PO (20:07)
[2022-12-08 20:12] VITALS: BP 124/81; PULSE 82; RESP 18; TEMP 36.6; O2SAT 96
[2022-12-09 06:00] VITALS: BP 115/70; PULSE 80; RESP 16; TEMP 36.7
[2022-12-09] MEDS: hydrOXYzine HCL 25 MG TABLET PO (08:21)
[2022-12-09] MEDS: Omeprazole 40 MG CAPSULE.DR PO (08:21)
--- NOTE | 2022-12-09 09:50 | PC.NURSE ---
Anatoly is discharged home in care of family. He denies ideation, plan or intent to harm self or others. He reports his symptoms have improved since admission specifically improved clarity of thought and less depressed. He denies physical complaint. He verbalizes understanding of prescribed medications and appointments.
[2022-12-09] MEDS: LORazepam 1 MG TABLET PO (09:52)
--- NOTE | 2022-12-09 19:53 | PM.PSYDC ---
DS: Providers Provider Date of Service: 12/09/22 Date of admission: 12/02/22 17:50 Primary care physician: Unknown Physician DS: Diagnosis Discharge Diagnosis (1) Bipolar disorder with depression: Status: Acute DS: Medications Discharge Medications Home Medications: Previous Rx's Medication Instructions Recorded lurasidone 40 mg tablet (Latuda) 40 mg PO DAILY@1700 #30 tabs 12/09/22 omeprazole 40 mg capsule,delayed 40 mg PO DAILY@0630 #30 caps 12/09/22 release quetiapine 25 mg tablet 25 mg PO BID PRN agitation #60 tabs 12/09/22 Mental Status Exam Mental Status Exam Narrative: Appearance: wearing hospital gown, in NAD Behavior: cooperative Psychomotor: no agitation or retardation noted Speech: clear, normal rate/rhythm/volume, spontaneous TP: linear TC: no signs of psychosis or delusions, more optimistic, future oriented. Mood: better Affect: brighter, full range SI: none HI: none VH/AH: none Delusions: none Insight/judgment: fair x 2. Memory/cog: alert, oriented x 3. Data Data Completed and Pending Completed studies during hospitalization [Text1]: 12/03/22 12/03/22 06:47 12:12 Sodium 141 Potassium 4.4 Chloride 105 Carbon Dioxide 27 Anion Gap 13 BUN 14 Creatinine 1.11 Estim Creat Clear Calc 97.7 Estimated GFR > 60 Fasting Glucose 97 Calcium 9.5 Total Bilirubin 0.7 AST 20 ALT 29 Alkaline Phosphatase 69 C-Reactive Protein < 0.04 Total Protein 6.7 Albumin 4.3 Triglycerides 50 Cholesterol 163 LDL Cholesterol, Calc 110 HDL Cholesterol 43 TSH 0.80 Imaging Diagnostic Imaging Impressions Brain MRI 12/05/22 15:55 IMPRESSION: - Unremarkable noncontrast MRI of the brain. - There is a retention cyst within the right maxillary sinus and there is mild mucosal thickening within the left maxillary sinus and throughout the ethmoid air cells bilaterally. DS: Summary Hospital Course Hospital Course: Subjective Notes: Miller Warning and Conditional Voluntary Narrative: Mr. Mazariegos is a 32 year-old male with hx of Bipolar Disorder who self presented to [facility] [place] increase confusion (cognitive fogginess poor attention with feeling forgetful not fully alert), anxiety, visual changes some light around people briefly which goes away and double vision (does not appear to be hallucinations), depressed mood, no suicidal ideation. Utox is negative. BAL is neg. Pt known to [facility] through previous admission back in 07/2022 for pepper. On the unit, pt reports he has not been able to function at work as he used to; poor attention (does have hx of ADHD) but also reports cognitive fogginess and cognitive slowing which is different from what he has experienced in the past with ADHD. He reports seeing halo, white light briefly around people. He also reports feeling tired and weak. He reports feeling anxious, at times having increase heart rate, hyperventilating. He reports feeling overwhelmed due to the fact that his is expecting their first child. He reports feeling depressed. No plan or intent to harm himself. He denies VH/AH. He reports fair sleep. He reports he was given strattera 2 weeks ago but stopped because it made me crazy. He reports he became even more agitated. He reports he has not used alcohol in about one month. He denies any other substances. He reports he has been taking seroquel for a long time. Past Psychiatric History: Inpt: M5, M3 2022 OP: looking for new OP provider but sees provider in [place], [place] Medical Evaluation Reviewed: Yes HOSPITAL COURSE On the unit, pt was admitted on a cv and placed on 15 minutes checks for safety. Pt presented with symptoms of depression including anhedonia, poor sleep, poor concentration. No overt signs of psychosis or delusional content. Pt reports he had been started on strattera but this medication made him more agitated. We discussed risks, benefits and alternative treatment options. He reported in the past he had been on low dose seroquel but higher doses were too sedating. We discussed starting latuda for bipolar disorder. His affect gradually presented as brighter, less labile. No SI/HI. No signs of psychosis. Increasingly more future oriented. No signs of aggression towards self or others. Collateral information gathered from his sister who denies any safety concerns and agrees that pt appears in much improved conditions. Time spent discussing smoking cessation with patient: 3 to 10 minutes Status at Discharge Cognitive/behavioral status at discharge: Pt with brighter, non labile affect. No SI/HI. No VH/AH. No overt delusional content. Less depressed. Sleeping and eating better. Functional status at discharge: independent ambulation Overall status at discharge: patient is progressing back to baseline Time Spent with Patient Time attestation: Total time managing care of this patient today ____ minutes. Discharge Plan Discharge Anticipated Discharge Date/Time: 12/09/22 10:55 Patient Disposition: Hospice - Home Discharge Diagnosis: Bipolar Disorder Referrals: Therapy & Psychiatry [Other] - 12/12/22 10:00 am (IN OFFICE APPOINTMENT -You with meet with either Yudi or Karthik for your intake. You will then be set up with therapy and psychiatry moving forward. ) Physician,Unknown J [Primary Care Provider] - 1 Week (monday @10am with ) Discharge Medications: New quetiapine 25 mg Tablet 25 mg PO BID PRN (Reason: agitation) Qty: 60 0RF omeprazole 40 mg Capsule,Delayed Release(Dr/Ec) 40 mg PO DAILY@0630 Qty: 30 0RF Latuda 40 mg Tablet 40 mg PO DAILY@1700 Qty: 30 0RF Discontinued quetiapine 50 mg tablet 100 mg PO BEDTIME Rx Instructions: RX not picked up in 10/2022 hydroxyzine HCl 10 mg tablet 1 - 2 tab PO BID PRN (Reason: Anxiety) Rx Instructions: Rx picked up on 11/07/22 atomoxetine 25 mg capsule 1 cap PO QAM Rx Instructions: Rx picked up on 11/07/22 omeprazole 40 mg capsule,delayed release(DR/EC) 1 cap PO DAILY Rx Instructions: Rx not picked up in 09/19 quetiapine 25 mg Tablet 25 mg PO BID PRN (Reason: agitation) 30 Days Qty: 60 1RF Rx Instructions: Rx not picked up in 10/2022 prazosin 1 mg Capsule 2 mg PO BEDTIME 30 Days Qty: 60 1RF Protocol: Hold for SBP< HOLD for SBP < : 90 Rx Instructions: Rx picked up on 11/07/22 Discharge Orders: Discharge Order (Routine); Ordered 12/09/22 Ordered By: Prerna Verduzco Diet: Regular diet Activity on Discharge: As tolerated Stand Alone Forms: Patient Portal Discharge page, Community Support Care Plan Goals: 1. Maintain mood 2. No SI/HI 3. No psychosis Health Concerns: Follow up with PCP Plan of Treatment: 1. Take medications as prescribed 2. Go to nearest ED or call 911 in event of emergency Assessment: Pt with brighter non labile affect. No SI/HI. No VH/AH. Pt sleeping and eating well. Future oriented. No signs of aggression towards self or others. Discharge Date/Time: 12/09/22 11:10
== END 2022-12-09 11:10 | disposition hospice, home (50) | DRG 885 ==
LOC: HO.ED 14:55 → HO.PADLT16 17:57
PROVIDERS: Physician Assistant Medical; Admitting Provider Social Worker; Emergency Provider Emergency Medicine; Visit Provider Social Worker
DX: F31.30 Bipolar disorder, current episode depressed, mild or moderate severity, unspecified (principal); R45.851 Suicidal ideations; Z20.822 Contact with and (suspected) exposure to COVID-19; Z87.891 Personal history of nicotine dependence; Z88.8 Allergy status to other drugs, medicaments and biological substances; Z79.899 Other long term (current) drug therapy
CPT/HCPCS: 0241U; 36415; 70551; 80053; 80061; 80307; 81003; 82077; 83735; 84443; 85025; 86140; 93005; 95816; 99285; S9485